=== PATIENT | female | born 1945 | race Caucasian/White ===

== ENCOUNTER 2017-11-03 12:33 | Outpatient (CLI) | payer MEDICARE, BC | END 2017-11-03 12:34 | disposition home or self-care (01) | LOC: BICMAMMO 12:33 | PROVIDERS: ATTEND Internal Medicine | DX: Z12.31 Encounter for screening mammogram for malignant neoplasm of breast (principal); R92.1 Mammographic calcification found on diagnostic imaging of breast | CPT/HCPCS: 77063; 77067 ==

== ENCOUNTER 2018-05-23 14:24 | Outpatient (CLI) | payer MEDICARE, BC ==
--- NOTE | 2018-05-23 17:41 | MRI ---
RIGHT SHOULDER MRI WITHOUT IV CONTRAST: 05/23/18 HISTORY: 72-year-old female with history of right rotator cuff tear, M75.101. No known injury. Right shoulder pain since March, getting worse. Prominent AC joint arthrosis with some subchondral cystic changes. fairly large amount of fluid withi n the subacromial, subdeltoid bursa. Full thickness minimally retracted supraspinatus tendon tear wit h some minimal associated delamination. There is some mild muscle volume loss of the supraspinatus mu scle. The remaining rotator cuff muscles appear within normal limits. The visualized labrum is somewh at blunted, evidence for some degenerative fraying. Subscapularis tendon and biceps tendons appear in tact. Posterior greater tuberosity subchondral cystic changes with a low grade partial thickness unde rsurface tear of the infraspinatus tendon. IMPRESSION: Full thickness minimally retracted tear of the supraspinatus tendon with considerable fluid in the [place] bacromial subdeltoid bursa. Low to mid grade partial thickness undersurface tear of the infraspinatus tendon at the insertion. Mild muscle volume loss of the supraspinatus muscle. Mild delamination asso ciated with the supraspinatus and infraspinatus tendons. Exam is considerably limited technically because of prominent motion artifact on numerous sequences. POS: [facility]
== END 2018-05-23 14:25 | disposition home or self-care (01) ==
LOC: SCSMRI 14:24
PROVIDERS: ATTEND Orthopaedic Surgery
DX: M75.101 Unspecified rotator cuff tear or rupture of right shoulder, not specified as traumatic (principal); S46.911A Strain of unspecified muscle, fascia and tendon at shoulder and upper arm level, right arm, initial encounter

== ENCOUNTER 2018-06-23 08:53 | Outpatient (CLI) | payer MEDICARE, BC ==
--- NOTE | 2018-06-23 12:16 | CT ---
CT ABDOMEN AND PELVIS: 06/23/2018 HISTORY: Lower abdominal pain for four days. History of diverticulosis. History of bladder sleeve procedure. COMPARISON: None. TECHNIQUE: Serial axial CT imaging is obtained at 5 mm intervals, from the lung bases through the pubic symphysi s, with IV and oral contrast. Coronal reformatted imaging obtained. FINDINGS: The imaged lung bases demonstrate linear density on the left, suggesting scar and/or volume loss. No free intraperitoneal air is noted. The patient is status post cholecystectomy. No discrete focal liver lesion is identified. The spleen, pancreas, and adrenal glands appear grossl y unremarkable. There is a cyst in the upper pole of the right kidney, measuring approximately 1.4 cm. There is prominent scoliotic curvature of the thoracolumbar spine with significant lumbar spine levos coliosis. There is a focal area of wall thickening and pericolonic fat stranding associated with the sigmoid co christel, best seen on axial image 58 and coronal image 58, suspicious for a focal area of colitis. There is no extraluminal gas or fluid. No evidence for abscess. The appendix is visualized and is within normal limits. There are nonspecific varices noted in the gastrohepatic ligament and splenic hilum. These could be associated with hepatocellular disease. Clinical correlation is required. No ascites is noted. There is scattered atherosclerotic calcification of the abdominal aorta and its branches. No lymphadenopathy is noted in the abdomen or pelvis. Review of the osseous structures demonstrates multilevel degenerative disk disease within the imaged spine, most significantly involving the mid lumbar spine, with right lateral osteophyte formation and disk space narrowing. There is no worrisome lytic or blastic bone lesion. IMPRESSION: 1. Focal are of colonic wall thickening and pericolonic fat stranding involving the sigmoid colon, e vidence of nonspecific colitis, likely on the basis of diverticulitis. Direct visualization, via colo noscopy, is advised, following the acute symptoms, to exclude an underlying colonic mass lesion. 2. Nonspecific upper abdominal varices. CODE T POS: [facility]
[2018-06-23] MEDS ORDERED: Iopamidol 370 76% 100 ML VIAL ONE (16:15)
== END 2018-06-23 08:54 | disposition home or self-care (01) ==
LOC: CT 08:53
PROVIDERS: ATTEND Physician Assistant Medical
DX: R10.30 Lower abdominal pain, unspecified (principal); K63.89 Other specified diseases of intestine
CPT/HCPCS: 74177

== ENCOUNTER 2018-07-20 05:28 | Outpatient (CLI) | payer MEDICARE, BC ==
[2018-07-20 12:09] LABS: #Eosinphils 0.2 thou/uL (0.0-0.7); #Monocytes 0.5 thou/uL (0.11-0.59); #Neutrophils 3.2 thou/uL (1.40-6.50); %Basophils 0.6 % (0.0-1.0); %Eosinophils 3.8 % (0.0-10.0); %Lymphocytes 20.6 % (21.0-51.0); %Monocytes 10.4 % (0.0-10.0); %Neutrophils 64.5 % (42.0-75.0); Hemoglobin 13.6 g/dL (12.0-16.0); Platelet Count 203 thou/uL (130-400); RBC Distribution Width 12.2 % (11.5-14.5); White Blood Cell (WBC) Count 4.9 thou/uL (4.8-10.8)
[2018-07-20 12:17] LABS: Anion Gap 12 mmol/L (10-20); BUN (Urea Nitrogen) 18 mg/dL (9.8-20.1); Calc. Creatinine Clearance 0 mL/min (70-130); Calcium 10.3 mg/dL (7.8-10.44); Carbon Dioxide 31 mmol/L (23-31); Chloride 104 mmol/L (98-107); Estimated GFR-MDRD 80; Glucose 104 mg/dL (83-110); Potassium 4.4 mmol/L (3.5-5.1); Sodium 143 mmol/L (136-145)
== END 2018-07-20 05:29 | disposition home or self-care (01) ==
LOC: LABBT 05:28
PROVIDERS: ATTEND Orthopaedic Surgery
DX: Z01.818 Encounter for other preprocedural examination (principal); M75.101 Unspecified rotator cuff tear or rupture of right shoulder, not specified as traumatic
CPT/HCPCS: 80048; 85025; 93005; 93010

== ENCOUNTER 2018-07-21 05:55 | Day surgery (SDC) | payer MEDICARE, BC ==
[2018-07-20 10:30] VITALS: BMI 29.4
[2018-07-21] MEDS ORDERED: Lidocaine 1% (PF) 30 ML VIAL ONE (06:30)
[2018-07-21] MEDS ORDERED: Midazolam HCl 2 mg/2 ml Vial ONE (06:30)
[2018-07-21] MEDS ORDERED: Fentanyl 100 MCG/2 ML VIAL ONE (06:30)
[2018-07-21] MEDS ORDERED: CEFAZOLIN 2 GM/50 ML BAG ONE (06:36)
[2018-07-21] MEDS ORDERED: Bupivacaine/Epinephrine 0.25% 30 ML VIAL ONE (06:38)
[2018-07-21] MEDS ORDERED: Promethazine HCl 25 MG/ML VIAL IM PRN (06:56)
[2018-07-21] MEDS ORDERED: Ondansetron PF 4 MG/2 ML Vial IVP PRN (06:56)
[2018-07-21] MEDS ORDERED: Fentanyl 100 MCG/2 ML VIAL SLOW IVP PRN (06:56)
[2018-07-21] MEDS ORDERED: traMADol HCl 50 MG TAB PO PRN ×2 (06:56)
[2018-07-21] MEDS ORDERED: Ropivacaine 0.2% 550 ML 550 ML NERVE BLCK SCH (06:56)
[2018-07-21] MEDS ORDERED: Zolpidem Tartrate 5 MG TAB PO PRN (06:56)
[2018-07-21] MEDS ORDERED: HYDROcodone/Acetaminophen 7.5/325 mg Tablet PO PRN ×2 (06:58)
--- NOTE | 2018-07-21 12:15 | OP ---
DATE OF PROCEDURE: 07/21/2018 PREOPERATIVE DIAGNOSES: Right shoulder impingement and rotator cuff tear and biceps instability. POSTOPERATIVE DIAGNOSES: Right shoulder impingement and rotator cuff tear and biceps instability. PROCEDURES PERFORMED: 1. Right shoulder arthroscopy with subacromial decompression. 2. Arthroscopic rotator cuff repair. 3. Arthroscopic biceps tenotomy. COOK RAILROAD: None. ESTIMATED BLOOD LOSS: Minimal. COMPLICATIONS: None. ANESTHESIA: She did have a general anesthetic. She also had a preoperative block. IMPLANTS: We used one Arthrex 5.5 SwiveLock for a SpeedFix repair. DISPOSITION: She did go to recovery in stable condition. INDICATIONS: Gayathri is a 73-year-old female, who comes in complaining of right shoulder pain, weakness, and instability and inability to do daily activities. At this time, she opted to have surgery in the arm. DESCRIPTION OF PROCEDURE: After all appropriate consent forms were explained and signed, she was taken back to the operating room, and at this time, she was given general anesthetic. Once the level of the anesthesia was appropriate, she was rolled into the left lateral decubitus position with all bony prominences well-padded. An axillary roll was placed underneath the left axilla and a beanbag was inflated to hold her in this position. The arm was taken through full range of motion and then suspended with 10 pounds in standard fashion. The right shoulder and upper extremity were then prepped and draped in standard surgical fashion. Bony anatomical landmarks were drawn out and the subacromial space was infiltrated with Marcaine with epinephrine. A posterior portal was established. The scope was placed into the shoulder joint. Anterior working portal was then made using a needle localization technique. Diagnostic arthroscopy commenced in the glenohumeral joint. The subscap was intact. The labrum overall was in good condition except for the superior labrum. The beginning portion of supraspinatus was found to be torn with a full-thickness tear and the biceps tendon was found to be in stable superiorly. The biceps tendon was found to be large and had an hourglass appearance and a significant amount of synovitic changes in the proximal portion of the bicipital groove. At this time, a biceps tenotomy was performed using the SERFAS energy. We then debrided the rotator cuff from the undersurface. We then finished by looking around the rest of the shoulder as the axillary pouch had no loose bodies. The posterior and inferior labrum were in good condition. There was a little bit of cartilage wear inferiorly, nothing significant, and at this time, the scope was removed and replaced into the subacromial space. Lateral working portal was made. Bursa was removed from off the underlying cuff. Full-thickness cuff tear was noted. A small decompression was performed using the service energy as well as a shaver and once that was done, we prepared our small cuff tear for repair using the shaver. At this time, it was felt that this was a small tear and SpeedFix could be performed. However, one [id number] suture had to be placed in the posterior aspect of this. Therefore, a Scorpion was used through the passport portal laterally and we passed one SutureTape suture as a [id number] repair. Once this was done, we used a 4.75 SwiveLock to remove the FiberTape out of this, passed it through the cuff using the Scorpion and went to place a 4.75 SwiveLock into the humeral bone. Once this was punched, we put this in, but it did not gain sufficient purchase. Therefore, this was removed and the 5.5 was used in the exact same manner. This gained much better purchase. The suture was removed from the middle of this. They were cut and this was the end of our rotator cuff repair. The arm was taken through full range of motion and found to be stable. The tear had been repaired and at this time, the scope was removed. Shoulder was drained and each portal was closed with a simple nylon stitch. Bulky sterile dressing was applied and the patient was then awakened and taken to the recovery room in stable condition. All counts were correct at the end of the case and she did receive preoperative IV antibiotics. Job ID: [id number]
[2018-07-21] MEDS ORDERED: PROPOFOL 200 MG/20 ML VIAL ONE (20:30)
[2018-07-21] MEDS ORDERED: Glycopyrrolate 0.2 MG/ML 5 ML SYRINGE ONE (20:30)
[2018-07-21] MEDS ORDERED: Ropivacaine 0.2% HCl/PF (40 MG/20 ML VIAL) ONE (20:30)
[2018-07-21] MEDS ORDERED: Ondansetron PF 4 MG/2 ML Vial ONE (20:30)
[2018-07-21] MEDS ORDERED: Ropivacaine 0.5% HCl/PF (150 MG/30 ML VIAL) ONE (20:30)
[2018-07-21] MEDS ORDERED: Lidocaine 1% PF 5 ML VIAL ONE (20:30)
[2018-07-21] MEDS ORDERED: PHENYLEPHRINE-NS 100 MCG/ML 10 ML SYRINGE ONE (20:30)
== END 2018-07-21 11:45 | disposition home or self-care (01) ==
LOC: SDC 05:55
PROVIDERS: ATTEND Orthopaedic Surgery
PROC: 0LQ14ZZ Repair Right Shoulder Tendon, Percutaneous Endoscopic Approach (ICD-10-PCS; principal; 2018-07-21)
PROC: 0RNJ4ZZ Release Right Shoulder Joint, Percutaneous Endoscopic Approach (ICD-10-PCS; 2018-07-21)
DX: M75.121 Complete rotator cuff tear or rupture of right shoulder, not specified as traumatic (principal); M25.811 Other specified joint disorders, right shoulder; M25.311 Other instability, right shoulder; E11.9 Type 2 diabetes mellitus without complications; M85.80 Other specified disorders of bone density and structure, unspecified site; E78.5 Hyperlipidemia, unspecified; M19.011 Primary osteoarthritis, right shoulder; Z88.8 Allergy status to other drugs, medicaments and biological substances; Z91.041 Radiographic dye allergy status; Z79.84 Long term (current) use of oral hypoglycemic drugs; Z79.899 Other long term (current) drug therapy
CPT/HCPCS: 93005; 93010; A4306; C1713; G8984-GP-CK; G8985-GP-CK; G8986-GP-CK; J2001; J2250; J2405; J2704; J2795; J3010

== ENCOUNTER 2018-07-22 21:38 | Inpatient (IN) | payer MEDICARE, BC ==
[~2018-07-22 21:38] MED LIST: ISOVUE-370 76%-LOCM 1 ML ONE
[2018-07-22 22:18] LABS: #Lymphocytes 1.4 thou/uL (1.20-3.40); #Monocytes 1.2 thou/uL (0.11-0.59); #Neutrophils 9.4 thou/uL (1.40-6.50); %Basophils 0.3 % (0.0-1.0); %Eosinophils 0.1 % (0.0-10.0); %Lymphocytes 11.5 % (21.0-51.0); %Monocytes 10.1 % (0.0-10.0); Hemoglobin 12.9 g/dL (12.0-16.0); Mean Corpuscular HGB CONC 34.1 g/dL (32.0-36.0); Mean Corpuscular Hemoglobin 33.7 pg (27.0-31.0); Mean Corpuscular Volume 98.6 fL (78.0-98.0); Mean Platelet Volume 5.5 fL (7.4-10.4); Platelet Count 217 thou/uL (130-400); RBC Distribution Width 12.3 % (11.5-14.5); Red Blood Cell (RBC) Count 3.83 mill/uL (4.20-5.40); White Blood Cell (WBC) Count 12.1 thou/uL (4.8-10.8)
--- NOTE | 2018-07-22 22:35 | RAD ---
ONE VIEW CHEST: 07/22/18 COMPARISON: 04/02/17 HISTORY: Pain. FINDINGS: Stable scoliosis of the spine. Persistent cardiomegaly. The pulmonary vessels are prominent. Patchy i nterstitial opacities throughout the lung parenchyma with more focal infiltrates in the lung bases. G iven diminished lung volumes, component of atelectasis should be considered. Infiltrate cannot be ent irely excluded. No pneumothorax. IMPRESSION: Lung parenchymal changes as described above. Findings may be due to atelectasis. Nevertheless, bibasi lar infiltrate cannot be excluded. POS: [facility]
[2018-07-22 22:38] LABS: ALT (SGPT) 15 U/L (8-55); AST (SGOT) 21 U/L (5-34); Albumin 4.3 g/dL (3.4-4.8); Alkaline Phosphatase 81 U/L (40-150); Anion Gap 13 mmol/L (10-20); BUN (Urea Nitrogen) 13 mg/dL (9.8-20.1); Bilirubin, Total 1.7 mg/dL (0.2-1.2); Calc. Creatinine Clearance 0 mL/min (70-130); Carbon Dioxide 28 mmol/L (23-31); Chloride 98 mmol/L (98-107); Estimated GFR-MDRD 74; Globulin 3.3 g/dL (2.4-3.5); Glucose 184 mg/dL (83-110); Potassium 3.9 mmol/L (3.5-5.1); Protein, Total 7.6 g/dL (6.0-8.3); Sodium 135 mmol/L (136-145)
[2018-07-22] MEDS ORDERED: methylPREDNISolone Sod Succ/PF 125 MG/2 ML VIAL ONE (23:14)
[2018-07-22] MEDS ORDERED: Famotidine/PF 20 mg/2ml Vial ONE (23:14)
[2018-07-22] MEDS ORDERED: Water For Inject, Bacteriostat 30 ML ONE (23:14)
[2018-07-22] MEDS ORDERED: diphenhydrAMINE 50 MG/ML VIAL ONE (23:14)
[2018-07-22] MEDS ORDERED: Piperacillin/Tazobactam 3.375 GM VIAL ONE (23:48)
[2018-07-23] MEDS ORDERED: Enoxaparin Sodium 80 MG/0.8 ML SYRINGE ONE (00:10)
[2018-07-23 00:11] LABS: CKMB 2.6 ng/mL (0-6.6)
--- NOTE | 2018-07-23 00:17 | CT ---
CT ANGIOGRAM OF THE CHEST 07/22/18 HISTORY: Weakness, status post right rotator cuff repair yesterday. Worsening shortness of breath. Cough. COMPARISON: None. TECHNIQUE: CT angiogram of the chest is performed in the axial plane. Three dimensional reformatted images are s ubmitted for interpretation. FINDINGS: Small foci if air note din the inferior right neck is presumed to be postoperative. Patchy opacities in the lingula and right upper lobe may represent areas of atelectasis. There is mor e focal consolidation in the middle lobe and right lower lobe. Correlate for multifocal atelectasis v ersus pneumonia. Trace amount of right sided pleural fluid. Trachea and central bronchi are patent. N o pneumothorax. No mediastinal mass, lymphadenopathy or hematoma. Heart is enlarged. No significant pericardial fluid . The thoracic aorta and upper abdominal aorta have an overall normal appearance. There is mild ectas ia. No dissection. No aneurysm. The visualized upper solid organs are grossly unremarkable. Adequate contrast opacification of the pulmonary arterial system to the level of the segmental arteri es. No evidence of filling defects to suggest thromboembolism. Mild rightward curvature of the thoracic spine. No lytic or blastic lesions. IMPRESSION: 1. No evidence of pulmonary artery embolism to the level of the segmental arteries. 2. Consolidation in the middle and right lower lobe. There is elevation of the right hemidiaphra gm, favoring atelectasis. Nevertheless, superimposed pneumonia cannot be excluded. Correlate clinical ly. 3. Cardiomegaly. POS: [facility]
[2018-07-23] MEDS ORDERED: Aspirin Chewable 81 MG TAB ONE (00:58)
[2018-07-23 01:55] LABS: Critical Call Chem Troponin I RESULT DECREASING; Troponin I 0.619 ng/mL (< 0.028)
[2018-07-23] MEDS ORDERED: Senokot S 8.6-50 MG TAB PO PRN (04:39)
[2018-07-23] MEDS ORDERED: Ondansetron ODT 4 MG TAB PO PRN (04:39)
[2018-07-23] MEDS ORDERED: Calcium Carbonate 500 MG ChewTAB PO PRN (04:39)
[2018-07-23] MEDS ORDERED: Zolpidem Tartrate 5 MG TAB PO PRN (04:39)
[2018-07-23] MEDS ORDERED: Ondansetron PF 4 MG/2 ML Vial IVP PRN (04:39)
[2018-07-23] MEDS ORDERED: Acetaminophen 650 MG Suppository PR PRN (04:39)
[2018-07-23] MEDS ORDERED: Dextrose 50% Abboject 50 ML SYRINGE SLOW IVP PRN (04:42)
[2018-07-23] MEDS ORDERED: Dextrose 5% in Water 1,000 ML IV PRN (04:42)
[2018-07-23] MEDS: HumaLOG 300 UNITS/3 ML VIAL SC PRN ×2 (05:17→13:50)
[2018-07-23 06:19] LABS: Critical Call Chem Troponin I RESULT DECREASING; Troponin I 0.363 ng/mL (< 0.028)
[2018-07-23 07:30] LABS: #Basophils 0.1 thou/uL (0.0-0.2); #Lymphocytes 0.7 thou/uL (1.20-3.40); #Monocytes 0.5 thou/uL (0.11-0.59); #Neutrophils 8.1 thou/uL (1.40-6.50); %Basophils 0.6 % (0.0-1.0); %Eosinophils 0.3 % (0.0-10.0); %Lymphocytes 7.2 % (21.0-51.0); %Monocytes 4.9 % (0.0-10.0); %Neutrophils 86.9 % (42.0-75.0); Hemoglobin 12.4 g/dL (12.0-16.0); Mean Corpuscular HGB CONC 32.6 g/dL (32.0-36.0); Mean Corpuscular Hemoglobin 32.5 pg (27.0-31.0); Mean Corpuscular Volume 99.7 fL (78.0-98.0); Platelet Count 172 thou/uL (130-400); RBC Distribution Width 12.1 % (11.5-14.5); Red Blood Cell (RBC) Count 3.83 mill/uL (4.20-5.40); White Blood Cell (WBC) Count 9.3 thou/uL (4.8-10.8)
[2018-07-23 07:32] LABS: Anion Gap 14 mmol/L (10-20); BUN (Urea Nitrogen) 12 mg/dL (9.8-20.1); Calc. Creatinine Clearance 83 mL/min (70-130); Carbon Dioxide 24 mmol/L (23-31); Chloride 102 mmol/L (98-107); Estimated GFR-MDRD 83; Glucose 213 mg/dL (83-110); Potassium 4.2 mmol/L (3.5-5.1); Sodium 136 mmol/L (136-145)
[2018-07-23] MEDS ORDERED: diphenhydrAMINE 25 MG CAP PO PRN (07:38)
[2018-07-23] MEDS ORDERED: Melatonin 3 MG TAB PO PRN (08:35)
[2018-07-23] MEDS ORDERED: Vit A,C & E/Lutein/Minerals Tablet PO SCH (09:00)
[2018-07-23] MEDS ORDERED: Non-Formulary Item 1 EACH (Lactobacillus Acidophilus [Probiotic] 1 CAPSULE) PO SCH (09:00)
[2018-07-23] MEDS ORDERED: Aspirin 325 mg Enteric Coated Tablet PO SCH (09:00)
[2018-07-23] MEDS ORDERED: Vancomycin HCl 1 GM in Premix Bag 1 BAG IVPB SCH (09:00)
[2018-07-23] MEDS ORDERED: Non-Formulary Item 1 EACH (Lansoprazole [Lansoprazole] 30 MG) PO SCH (09:00)
[2018-07-23] MEDS: Enoxaparin Sodium 40 MG/0.4 ML SYRINGE SC SCH (09:16)
[2018-07-23] MEDS: Ubidecarenone 50 MG CAP PO SCH ×2 (09:17→20:40)
[2018-07-23] MEDS: Calcium Carbonate + Vit D 1 TAB PO SCH ×2 (09:18→20:44)
[2018-07-23] MEDS: Gabapentin 300 MG CAP PO SCH ×2 (09:18→20:46)
[2018-07-23] MEDS: Lactinex Tablet PO SCH (09:18)
[2018-07-23] MEDS: Famotidine 20 MG TAB PO SCH ×2 (09:19→21:00)
[2018-07-23] MEDS: Multivitamin W/ Minerals 1 TAB PO SCH ×2 (09:20→20:47)
[2018-07-23] MEDS: Magnesium Oxide 400 MG TAB PO SCH (09:20)
[2018-07-23] MEDS: Famotidine/PF 20 mg/2ml Vial SLOW IVP SCH ×2 (09:25→20:48)
--- NOTE | 2018-07-23 09:31 | HP ---
HISTORY OF PRESENT ILLNESS: The patient is a 73-year-old female, who just had her right shoulder surgery done by Dr. Zambrano couple of days ago and she got sick after then. She started having some shortness of breath and feeling generalized weakness with some cough. She presented to the emergency room for further evaluation. She was found to have pneumonia and she is admitted for the treatment of healthcare-associated pneumonia. She was given vancomycin, levofloxacin, and Zosyn in the emergency room along with methylprednisolone. She had her right rotator cuff surgery as I stated above. She has a pump with ropivacaine for pain management, but she has not been used it yet. PAST MEDICAL HISTORY: 1. Diabetes mellitus. 2. Spinal stenosis. 3. Scoliosis. 4. Sleep apnea. 5. History of asthma in the past, but not current. PAST SURGICAL HISTORY: 1. Ectopic . 2. Miscarriage. 3. Oral surgery. 4. Cholecystectomy. 5. Tonsillectomy. 6. Bladder sling. 7. Left SLK surgery. 8. Right rotator cuff surgery just recently. CURRENT MEDICATIONS: 1. Lansoprazole 30 mg twice a day. 2. Balsalazide 750 two tablets twice a day. 3. Gabapentin 300 mg three capsules twice a day. 4. Atorvastatin 40 mg at bedtime. 5. Kombiglyze XR 5 mg/1000 mg one a day. 6. Nateglinide 60 mg twice a day. 7. B12 vitamin lozenge 5000 mcg one a day. 8. Calcium 500 with vitamin D twice a day. 9. Coenzyme Q10, 100 mg twice a day. 10. Magnesium 400 mg once a day. 11. Marlin 10/325 mg every 6 hours p.r.n. 12. Keflex 500 mg four times a day. 13. Olmesartan 20 mg once a day. 14. Ropivacaine elastomeric pump strength 0.2%. ALLERGIES: ERYTHROMYCIN BASE, IODINATED CONTRAST ORAL AND IV DYE. SOCIAL HISTORY: She does not have any history of cigarette smoking. She does not drink much, just socially. She does not use any illicit drugs. FAMILY HISTORY: Her parents were at the age of 92, both of them when they passed. Father had some kind of infection, but she does not know exactly what it was, and mother had intestinal rupture and she passed from that. Surrogate decision maker is her , Tiffanie Cash. PRIMARY CARE PHYSICIAN: Dr. Pimentel. CODE STATUS: Full. REVIEW OF SYSTEMS: CONSTITUTIONAL: Positive for generalized weakness. Negative for fever or chills. EYES: Negative for eye pain or eye discharge. ENT: Negative for nasal congestion or epistaxis. CARDIOVASCULAR: Negative for chest pain or palpitations. RESPIRATORY: Positive for shortness of breath and cough. GI: Negative for nausea or vomiting. : Negative for hematuria. Positive for some dysuria. MUSCULOSKELETAL: Positive for back pain. SKIN: Negative for erythema or rash. NEUROLOGIC: Negative for any focal weakness. Denies any mental status changes. ENDOCRINE: Negative for polydipsia or polyuria. PSYCHIATRIC: Negative for suicidal or homicidal ideations. PHYSICAL EXAMINATION: VITAL SIGNS: Blood pressure is 131/67, pulse is 91, temperature is 98.2, respirations 21, and O2 saturation is 92% on 3 L by nasal cannula. HEENT: Head is atraumatic and normocephalic. Eyes, PERRLA. Sclerae are nonicteric. Oral mucosa is somewhat dry. NECK: Supple. She has a small line in her right side of the neck for pain medications pump. She has right shoulder dressing. LUNGS: Present with some crackles and rales at the right base. No wheezing though. HEART: S1 and S2 normal. No S3. No S4. No any murmur. ABDOMEN: Soft and nontender. Bowel sounds are present. No organomegaly. No guarding. EXTREMITIES: No clubbing, cyanosis, or edema. NEUROLOGIC: She is alert and oriented x4. There is no any motor or sensory deficits present. Cranial nerves are intact. LABORATORY DATA: Labs showed white count of 9.3, hemoglobin of 12.4, hematocrit 38.2, platelet count is 172,000, neutrophils 86.9. The first white count from yesterday was 12.1. D-dimer is 0.82. Sodium 135, today is 136. The rest of electrolytes are within normal limits. Creatinine 0.69, glucose ranging from 184 to 213, calcium 9.0. Troponin is elevated at 0.701, 0.619, and 0.363. BNP was 309.3. Lipase 17. The rest of comp is within normal limits. DIAGNOSTIC STUDIES: EKG showed sinus tachycardia with 101 ventricular beats per minute, PA interval 142 milliseconds and QT/QTC 340/440 milliseconds. IMAGING STUDIES: 1. Chest x-ray showed cardiomegaly and some changes in both lower lungs, that is unclear etiology. 2. CT angiogram was done, which showed again cardiomegaly, and middle and right lower lobe infiltrates. No evidence of pulmonary embolism. IMPRESSION: 1. Right middle and lower lobe pneumonia that is healthcare-associated pneumonia, since the patient had rotator cuff surgery and after that she developed shortness of breath and hypoxia. 2. Respiratory failure with hypoxemia secondary to #1. 3. Non ST-segment elevation myocardial infarction. 4. History of asthma. 5. Severe sleep apnea, on CPAP at night. 6. Diabetes mellitus type 2. PLAN: Admission is full. Condition is guarded. IV Hep-Lock. Diabetic diet. Cardiology consultation with Dr. Be and Pulmonary consultation with Dr. Loco, since the patient lost her wafer mounter, , who moved to [facility], and she wants to switch to one of the wafer mounter from this hospital. We will start her on DuoNeb every 4 hours. We will put her on vancomycin and cefepime to have full broad coverage pathogens. She will continue on O2. She will have SCDs for DVT prophylaxis and Lovenox for DVT prophylaxis. We will reconcile her home medications. She had blood cultures x2. She is not able to make any sputum at this point, so we are not going to obtain a sputum specimen. Air Transportation Provider will make decision whether she will continue on IV steroids since she had one dose last night in the emergency room, but because of her recent right shoulder surgery, I will leave this up to him whether she needs steroid for her hypoxemia. Job ID: [id number]
[2018-07-23] MEDS: Cefepime 1 GM in Sodium Chloride 0.9% 100 ML IVPB SCH ×2 (10:52→20:36)
--- NOTE | 2018-07-23 12:09 | CON ---
DATE OF CONSULTATION: REASON FOR CONSULTATION: Elevated troponin. HISTORY OF PRESENT ILLNESS: Ms. Calzada is a very pleasant 73-year-old woman, who recently presented with shortness of breath. She recently had right shoulder surgery. She went home. She developed increased shortness of breath and fever. She was seen and evaluated in the emergency room and was diagnosed with atelectasis and questionable pneumonia. She had a right middle and lower lobe consolidation. No previous history of a chest pain or pressure noted. She is seen and evaluated by Dr. Huang. PAST MEDICAL HISTORY: Diabetes mellitus, hyperlipidemia, hypertension, previous palpitations, mitral regurgitation, obesity, hyperlipidemia, spinal stenosis, and sleep apnea. HOME MEDICATIONS: Include; 1. Diovan. 2. Lipitor. 3. Lansoprazole. 4. Melatonin. 5. Gabapentin. 6. Tizanidine. 7. Multivitamin. 8. CoQ10. 9. Benadryl. 10. Duloxetine. 11. Vitamin C. 12. Vitamin D. 13. Flonase. 14. Calcium. 15. Ocuvite. 16. Turmeric. PREVIOUS SURGICAL HISTORY: Includes a cataract surgery, cholecystectomy, polyp removal, colonoscopy, tonsillectomy, BTL, and wisdom teeth removal. ALLERGIES: ERYTHROMYCIN. REVIEW OF SYSTEMS: Ten-point review of systems is reviewed and as above, otherwise negative. PHYSICAL EXAMINATION: GENERAL: Patient is a pleasant, who is in no acute distress. The patient appears their stated age. VITAL SIGNS: Blood pressure 140/67, pulse 96, and temperature 97.7. NEUROLOGIC: The patient is alert and oriented x3 with no focal neurologic deficits. HEENT: Sclerae without icterus. Mouth has moist mucous membranes with normal pallor. NECK: No JVD. Carotid upstroke brisk. No bruits bilaterally. LUNGS: Clear to auscultation with unlabored respirations. BACK: No scoliosis or kyphosis. CARDIAC: Regular rate and rhythm with normal S1 and S2. No S3 or S4 noted. No significant rubs, murmurs, thrills, or gallops noted throughout the precordium. PMI is not displaced. There is no parasternal heave. ABDOMEN: Soft, nontender, nondistended. No peritoneal signs present. No hepatosplenomegaly. No abnormal striae. EXTREMITIES: 2+ femoral and 2+ dorsalis pedis pulses. No cyanosis, clubbing, or edema. SKIN: No gross abnormalities. LABORATORY DATA: Pertinent labs, creatinine 0.6. Peak troponin 0.6. Hemoglobin is 12.4. IMAGING DATA: EKG shows normal sinus rhythm, nonspecific ST-T wave changes. IMPRESSION: 1. Shortness of breath. 2. Recent surgery. 3. Elevated troponin. RECOMMENDATIONS: Ms. Garay shortness of breath is likely related to atelectasis versus pneumonia. She does state she has difficulty with taking a deep breath after her surgery. Incentive spirometry has been recommended. Her elevated troponin is likely not related to an acute coronary syndrome. No EKG changes are present. At this point, I would recommend conservative therapy. We will continue aspirin. We will add low-dose beta-peggy therapy and continue atorvastatin. May need disposition with stress test as an inpatient versus outpatient prior to discharge. Given her difficulty with breathing currently, we will need to wait several days. Job ID: [id number]
[2018-07-23] MEDS: Nateglinide 120 MG TAB PO SCH ×3 (19:13→19:16)
[2018-07-23] MEDS: Cyanocobalamin (Vitamin B-12) 1,000 MCG TAB PO SCH (20:41)
[2018-07-23] MEDS: Vit A,C & E/Lutein/Minerals Tablet PO SCH (20:41)
[2018-07-23] MEDS: Atorvastatin Calcium 40 MG TAB PO SCH (20:44)
--- NOTE | 2018-07-23 22:16 | CON ---
DATE OF CONSULTATION: 07/23/2018 SERVICE: Pulmonary Medicine. REASON FOR CONSULT: Respiratory failure. HISTORY OF PRESENT ILLNESS: The patient is a 73-year-old white female with past medical history significant for recent shoulder surgery. She was in her usual state of health going into the surgery. She was having some chest discomforts that were on and off. Ultimately, she went for with surgery either way. Two days later, she had increasing shortness of breath that caused her to come back to the emergency department. She currently denies any fevers or chills. She is having some low-grade temperature. She indicates having a cough that was bringing up a little bit of clear phlegm. She has been sleeping in a semi-recumbent position because it is easier to breathe in this position. She denies having any paroxysmal nocturnal dyspnea. She was having severe orthopnea. She has not been wheezing. In the emergency department, she had a chest x-ray that was concerning for pneumonia. That being said, the CT confirmed that there was no significant infiltrate present. If anything, she had a little bit of volume overload associated with some atelectasis. PAST MEDICAL HISTORY: 1. Type 2 diabetes mellitus. 2. History of asthma. 3. Obstructive sleep apnea. 4. Scoliosis. 5. Spinal stenosis. 6. Gastroesophageal reflux disease. 7. Dyslipidemia. 8. Hypertension. 9. Chronic pain syndrome. PAST SURGICAL HISTORY: 1. Ectopic surgery. 2. Oral surgery. 3. Cholecystectomy. 4. Tonsillectomy. 5. Bladder suspension surgery. 6. Left knee surgery. 7. Right rotator cuff surgery, postop day #3. ALLERGIES: ERYTHROMYCIN, IODINE. MEDICATIONS: List of her inpatient medications was reviewed. Multiple updates were made at this time. SOCIAL HISTORY: Negative for tobacco, alcohol, or illicit drug use. She has no exposure to chemicals, dust, asbestos, or tuberculosis. FAMILY HISTORY: Noncontributory. REVIEW OF SYSTEMS: General, head, ears, eyes, nose, throat, cardiovascular, respiratory, GI, , musculoskeletal, neurologic, and skin are negative except as mentioned is the HPI. PHYSICAL EXAMINATION: VITAL SIGNS: Afebrile, pulse 98, blood pressure 127/60, respirations 20, and saturation 98% on 3 L nasal cannula. GENERAL: The patient is awake and alert, in no apparent distress. LUNGS: Extensive crackles are present in the anterior and posterior regions. It is more extensive in the bibasilar region. There is decreased air entry in the right base. HEART: Normal rate and regular. ABDOMEN: Soft, nontender, and nondistended. Bowel sounds are positive. MUSCULOSKELETAL: No cyanosis or clubbing. There is no pitting in the bilateral lower extremities. NEUROLOGIC: Grossly nonfocal. LABORATORY DATA: WBC 9.3, hemoglobin 12.4, and platelets 172,000. D-dimer 0.82. Basic metabolic profile is unremarkable. Calcium 9.0, troponin is downtrending to 0.363. BNP 309. Lipase 17, lactate 1.1. Liver function studies are also completely unremarkable. Chest x-ray demonstrates cardiomegaly. There is possible infiltrate in the left base. There is also atelectasis in the right base with an elevated right-sided hemidiaphragm. IMAGING STUDIES: CT of the chest demonstrates no evidence of PE. There is interstitial fullness, and subtle ground-glass opacification changes consistent with a touch of volume overload. She has some atelectasis in the bibasilar region. There is a possible infiltrate in the posterior segment of the right upper lobe , and also the superior segment of the right lower lobe. There is bilateral pleural effusions, which are quite small. Fluid is prominent throughout the fissures. ASSESSMENT: 1. Acute hypoxic respiratory failure. 2. Acute on chronic diastolic heart failure. 3. Non-ST elevation myocardial infarction. 4. Atelectasis of the bilateral lung jesus. 5. Community-acquired pneumonia, possible. 6. Elevated right hemidiaphragm. 7. Obstructive sleep apnea. DISCUSSION AND PLAN: The patient should use her CPAP while she is here. We will diurese the patient until she returns down to euvolemia. I do believe she will easily tolerate 2 to 3 doses of Lasix. The first two will be provided tomorrow morning so that we do not interrupt her night. IV antibiotics will be completely discontinued. We will put her on p.o. Augmentin for possible pneumonia. This can be limited to a 5-day course. Pulmonary Critical Care will continue to follow along for the time being, but from my perspective, once she feels stable for discharge from the hospital, we can dismiss her. I will have her return to clinic to follow up with me in the outpatient setting. 70 minutes have been devoted to this patient in various activities. I personally reviewed all imaging studies and laboratory data noted within this document. For fifty percent of this time, I was interacting with the patient at the bedside or coordinating care with the care team. For the remainder of the time I was immediately available to the patient in the hospital unit. Job ID: [id number] MTDD
[2018-07-24 05:59] LABS: Anion Gap 12 mmol/L (10-20); BUN (Urea Nitrogen) 14 mg/dL (9.8-20.1); Calc. Creatinine Clearance 84 mL/min (70-130); Calcium 8.6 mg/dL (7.8-10.44); Carbon Dioxide 28 mmol/L (23-31); Chloride 103 mmol/L (98-107); Estimated GFR-MDRD 86; Glucose 175 mg/dL (83-110); Magnesium 2.4 mg/dL (1.6-2.6); Potassium 3.8 mmol/L (3.5-5.1); Sodium 139 mmol/L (136-145)
[2018-07-24] MEDS: Furosemide 20 MG/2 ML VIAL SLOW IVP SCH (06:03)
[2018-07-24] MEDS: ZINC PO SCH (07:46)
[2018-07-24] MEDS: FLAXSEED OIL 1300 MG PO SCH (07:46)
[2018-07-24] MEDS ORDERED: HYDROcodone/Acetaminophen 5/325 mg Tablet PO PRN (07:53)
[2018-07-24] MEDS: Nateglinide 120 MG TAB PO SCH ×2 (08:43→16:41)
[2018-07-24] MEDS: Ubidecarenone 50 MG CAP PO SCH ×2 (08:45→20:29)
[2018-07-24] MEDS: Enoxaparin Sodium 40 MG/0.4 ML SYRINGE SC SCH (08:45)
[2018-07-24] MEDS: Amoxicillin/Potassium Clav 875 MG TAB PO SCH ×2 (08:45→20:31)
[2018-07-24] MEDS: Lactinex Tablet PO SCH (08:45)
[2018-07-24] MEDS: Gabapentin 300 MG CAP PO SCH ×2 (08:46→20:30)
[2018-07-24] MEDS: Famotidine/PF 20 mg/2ml Vial SLOW IVP SCH ×2 (08:46→20:32)
[2018-07-24] MEDS: Calcium Carbonate + Vit D 1 TAB PO SCH ×2 (08:46→20:32)
[2018-07-24] MEDS: Magnesium Oxide 400 MG TAB PO SCH (08:46)
[2018-07-24] MEDS: Multivitamin W/ Minerals 1 TAB PO SCH ×2 (08:46→20:29)
[2018-07-24] MEDS: Famotidine 20 MG TAB PO SCH ×2 (08:46→20:31)
[2018-07-24] MEDS: Acetaminophen 325 MG TAB PO PRN ×2 (08:46→16:41)
[2018-07-24] MEDS: HumaLOG 300 UNITS/3 ML VIAL SC PRN ×2 (12:01→17:19)
--- NOTE | 2018-07-24 13:49 | PRG ---
DATE OF SERVICE: SUBJECTIVE: The patient appears to be doing well. She says she has improved greatly over the last 48 hours. OBJECTIVE: VITAL SIGNS: She is 97.9 with a T-max of 99.1, pulse 90, respirations 16, O2 saturation 96% on 3 L. HEENT: Unremarkable. NECK: No JVD. LUNGS: She has inspiratory crackles at the bases. CARDIAC: S1 and S2 regular. ABDOMEN: Soft. EXTREMITIES: No edema. LABORATORY DATA: Sodium 139, potassium 3.8, chloride 103, CO2 of 28, BUN 14, creatinine 0.7, glucose 175. ASSESSMENT: Pneumonia, which could be related to recent surgical procedure and potential aspiration with anesthesia. Principal involvement is in the right lower lobe. RECOMMENDATIONS: 1. Increase activity as tolerated. 2. Continue antibiotics. 3. Hopefully, able to discharge in the next 48 hours. Job ID: [id number]
[2018-07-24] MEDS ORDERED: Furosemide 20 MG/2 ML VIAL SLOW IVP SCH (14:00)
--- NOTE | 2018-07-24 15:03 | PRG ---
DATE OF SERVICE: 07/24/2018 SUBJECTIVE: The patient improved significantly since yesterday since we started her on prednisone. I discussed the case with Dr. Cowan, who okayed the use of prednisone for short periods of time. OBJECTIVE: VITAL SIGNS: Blood pressure is 128/83, temperature 97.9, O2 saturation is 96% on 3 L by nasal cannula, respiratory rate is 16, and pulse is 92. HEENT: Head is atraumatic and normocephalic. Eyes are PERRLA. Sclerae are nonicteric. Conjunctivae palish. Oral mucosa is moist. EXTREMITIES: She has a right upper extremity in the sling and the right shoulder is wrapped with dressing. LUNGS: Present with some crackles at the right base and few wheezes at the right base. HEART: S1 and S2 normal. No S3. No S4. ABDOMEN: Soft and nontender. Bowel sounds are present. No organomegaly. EXTREMITIES: No clubbing, cyanosis, or edema. NEUROLOGIC: She is alert and oriented x4. There are no motor or sensory deficits. Cranial nerves are intact. LABORATORY DATA: Labs showed glucose is ranging from 158 to 238. Normal chemistry today. IMPRESSION: 1. Right lower lobe and right middle lobe pneumonia. The patient was seen by parts salesman and she is switched to oral antibiotic. He does not think this is healthcare-associated pneumonia and she is treated as community-acquired pneumonia. Continue O2. Continue DuoNeb. 2. Respiratory failure with hypoxemia secondary to #1. 3. Bhf-[id number] elevation myocardial infarction. 4. History of asthma. 5. Severe sleep apnea, on CPAP at night. 6. Diabetes mellitus, type 2. PLAN: Plan is to continue current regimen with oral antibiotics. She was switched to Augmentin 875 mg twice a day. She was seen by Dr. Be for Cardiology evaluation. He feels that this is most likely related to her lung condition. He does not think this is acute coronary syndrome since there are no EKG changes at present. He recommends continue aspirin and low-dose beta peggy therapy and continue atorvastatin and later, he recommends to do the stress test when her condition is significantly improved to the point that she can do the stress test, nothing now. Job ID: [id number]
--- NOTE | 2018-07-24 15:06 | PQF ---
CLINICAL DOCUMENTATION IMPROVEMENT CLARIFICATION FORM: ICD-10 Updated PLEASE DO AN ADDENDUM TO THE PROGRESS NOTE WITH ANY DOCUMENTATION UPDATES OR ADDITIONS AND CARRY THROUGH TO DC SUMMARY. THANK YOU. DATE: 07/24/18 ATTN: DR. TRIVEDI Please exercise your independent, professional judgment in responding to the clarification form. Clinical indicators are provided on the bottom of this form for your review Please check appropriate box(s): [ ] NSTEMI [ ] ID Type II [ x ] DEMAND ISCHEMIA [ ] Other diagnosis [ ] Unable to determine In addition, please specify: Present on Admission (POA): [ ] Yes [ ] No [ ] Unable to determine CLINICAL INDICATORS - SIGNS / SYMPTOMS / LABS H&P: "NSTEMI" CARDIOLOGY NOTE 07/23: "ELEVATED TROPONIN" "HER ELEVATED TROPONIN IS LIKELY NOT RELATED TO AN ACUTE CORONARY SYNDROME. NO EKG CHANGES ARE PRESENT." TROPONINS 0.701 / 0.619 / 0.363 RISKS: RECENT SURGERY H/O DIABETES H/O HYPERTENSION PNEUMONIA TREATMENT: TELEMETRY MONITORING SERIAL CARDIAC ENZYMES CARDIOLOGY CONSULT LOVENOX (ER-PRESENT) ASPIRIN (ER) SAP Cosmetic Counselor [employer] Winform Viewer(This form is maintained as a part of the permanent medical record) 2014 [employer]. All Rights Reserved [email or web address] Office: [phone] [id number]
--- NOTE | 2018-07-24 15:28 | PQF ---
CLINICAL DOCUMENTATION IMPROVEMENT CLARIFICATION FORM: ICD-10 Updated PLEASE DO AN ADDENDUM TO THE PROGRESS NOTE WITH ANY DOCUMENTATION UPDATES OR ADDITIONS AND CARRY THROUGH TO DC SUMMARY. THANK YOU. DATE: 07/24/18 ATTN: DR. TRIVEDI Please exercise your independent, professional judgment in responding to the clarification form. Clinical indicators are provided on the bottom of this form for your review Please check appropriate box(s): [ ] Aspiration Pneumonia [ ] Aspiration Bronchitis [ ] Empirically treating Gram Negative Pneumonia [ ] Empirically treating Anaerobic Pneumonia [ ] Pneumonia secondary to (specify organism / underlying disease) [ ] Simple Pneumonia (community acquired - nosocomial) [ ] Bronchopneumonia [ ] Pneumonia of unknown etiology [ ] Other diagnosis [ ] Unable to determine In addition, please specify: Present on Admission (POA): [ ] Yes [ ] No [ ] Unable to determine For continuity of documentation, please document condition throughout progress notes and discharge summary. Thank You. CLINICAL INDICATORS - SIGNS / SYMPTOMS / LABS H&P: "ADMITTED FOR TREATMENT OF HEALTHCARE-ASSOCIATED PNEUMONIA" CONSULTATION NOTE (SPIKE) 07/23: "SHE HAS SOME ATELECTASIS IN THE BIBASILAR REGION. THERE IS A POSSIBLE INFILTRATE IN THE POSTERIOR SEGMENT OF THE RIGHT UPPER LOBE, AND ALSO THE SUPERIOR SEGMENT IF THE RIGHT LOWER LOBE. THERE IS BILATERAL PLEURAL EFFUSIONS, WHICH ARE QUITE SMALL." PROGRESS NOTE 07/24: "PNEUMONIA, WHICH COULD BE RELATED TO RECENT SURGICAL PROCEDURES AND POTENTIAL ASPIRATION WITH ANESTHESIA. PRINCIPAL INVOLVEMENT IS INS THE RIGHT LOWER LOBE." RISKS: ROTATOR CUFF SURGERY 2 DAYS AGO WITH ANESTHESIA TREATMENT: IV VANCOMYCIN (ER) IV LEVAQUIN (ER) IV ZOSYN (ER) AUGMENTIN (STARTED 07/24) BLOOD CULTURES TELEMETRY MONITORING PULMONARY CONSULT CHEST XRAY CT CHEST (This form is maintained as a part of the permanent medical record) 2014 [employer]. All Rights Reserved KUSH [email or web address] Office: [phone] SADIE
[2018-07-24] MEDS: Vit A,C & E/Lutein/Minerals Tablet PO SCH (20:29)
[2018-07-24] MEDS: Cyanocobalamin (Vitamin B-12) 1,000 MCG TAB PO SCH (20:30)
[2018-07-24] MEDS: Atorvastatin Calcium 40 MG TAB PO SCH (20:31)
--- NOTE | 2018-07-24 21:40 | PDOC.CTH ---
Cardiology Progress Note - Subjective She is doing well. She denies any chest pain, tightness ,pressure, SOB. - Objective Vital Signs Temp Pulse Resp BP BP Pulse Ox 07/24/18 19:40 99.6 F 100 18 117/56 L 97 07/24/18 19:27 91 18 95 07/24/18 16:00 98.6 F 99 18 136/63 97 07/24/18 13:03 92 16 96 07/24/18 12:00 97.9 F 99 18 128/83 95 Admit Weight 162 lb 11.2 oz Weight 160 lb 1.6 oz 07/23/18 07/24/18 07/25/18 06:59 06:59 06:59 Intake Total 2180 720 Output Total 1200 1700 Balance 980 -980 - Physical Examination General/Neuro: alert & oriented x3, NAD Neck: no JVD present Lungs: unlabored respirations Heart: RRR Abdomen: NT/ND Extremities: other: (no edema) - Telemetry Telemetry Rhythm: NSR, Afib - Labs Result Diagrams: 07/23/18 07:05 07/24/18 04:30 Troponin/CKMB CK-MB (CK-2) 2.6 ng/mL (0-6.6) 07/22/18 22:13 Troponin I 0.363 ng/mL (< 0.028) H* 07/23/18 04:19 - Assessment/Plan 1. SOB 2. Possible Pneumonia 3. NSTEMI, demand ischemia 4. Paroxysmal afib 5. CHADS-VASc score of 4 PLAN: - Will need ischemic evaluation once pneumonia resolved. - Will need full anticoagulation for her paroxysmal afib, will start Eliquis once safe from surgical perspective. - She did have episodes of chest pain prior to her surgery. May need LHC before discharge. Will discuss with Ortho. .- Will get Echo.
[2018-07-25] MEDS: Amiodarone 450 MG, Admixture Fee 1 EACH in Dextrose 5% in Water 250 ML IVPB SCH ×2 (00:52→09:36)
[2018-07-25 01:48] LABS: ALT (SGPT) 33 U/L (8-55); AST (SGOT) 39 U/L (5-34); Alkaline Phosphatase 113 U/L (40-150); Bilirubin, Direct 0.5 mg/dL (0.1-0.3); Bilirubin, Total 1.1 mg/dL (0.2-1.2); Magnesium 2.1 mg/dL (1.6-2.6); Potassium 3.4 mmol/L (3.5-5.1); Protein, Total 7.2 g/dL (6.0-8.3)
[2018-07-25] MEDS: Acetaminophen ER (8hr) 650 MG TAB PO PRN (02:06)
[2018-07-25] MEDS ORDERED: Potassium Chloride 20 MEQ TAB PO SCH (03:15)
[2018-07-25] MEDS: Furosemide 20 MG/2 ML VIAL SLOW IVP SCH (06:23)
[2018-07-25 06:44] LABS: Anion Gap 13 mmol/L (10-20); BUN (Urea Nitrogen) 16 mg/dL (9.8-20.1); Calc. Creatinine Clearance 80 mL/min (70-130); Calcium 9.2 mg/dL (7.8-10.44); Carbon Dioxide 29 mmol/L (23-31); Chloride 100 mmol/L (98-107); Estimated GFR-MDRD 80; Glucose 231 mg/dL (83-110); Magnesium 2.2 mg/dL (1.6-2.6); Potassium 3.7 mmol/L (3.5-5.1); Sodium 138 mmol/L (136-145)
[2018-07-25] MEDS: HumaLOG 300 UNITS/3 ML VIAL SC PRN ×3 (09:13→17:49)
[2018-07-25] MEDS: Ubidecarenone 50 MG CAP PO SCH ×2 (09:14→20:41)
[2018-07-25] MEDS: Enoxaparin Sodium 40 MG/0.4 ML SYRINGE SC SCH (09:14)
[2018-07-25] MEDS: Nateglinide 120 MG TAB PO SCH ×2 (09:15→17:49)
[2018-07-25] MEDS: Lactinex Tablet PO SCH (09:15)
[2018-07-25] MEDS: Multivitamin W/ Minerals 1 TAB PO SCH ×2 (09:16→20:43)
[2018-07-25] MEDS: Calcium Carbonate + Vit D 1 TAB PO SCH ×2 (09:16→20:43)
[2018-07-25] MEDS: Amoxicillin/Potassium Clav 875 MG TAB PO SCH ×2 (09:16→20:42)
[2018-07-25] MEDS: Magnesium Oxide 400 MG TAB PO SCH (09:16)
[2018-07-25] MEDS: Gabapentin 300 MG CAP PO SCH ×2 (09:16→20:43)
[2018-07-25] MEDS: Famotidine/PF 20 mg/2ml Vial SLOW IVP SCH ×2 (09:17→20:44)
[2018-07-25] MEDS: Famotidine 20 MG TAB PO SCH ×2 (09:33→20:43)
--- NOTE | 2018-07-25 13:32 | PRG ---
DATE OF SERVICE: 07/25/2018 SUBJECTIVE: This morning, still coughing, still short of breath. OBJECTIVE: VITAL SIGNS: Blood pressure is 120/63, temperature 98, pulse 90, respirations 18. CHEST: Decreased breath sounds. No wheezing. CARDIAC: Normal S1, S2. No gallops. ABDOMEN: No masses. IMPRESSION: Aspiration pneumonia and obesity. PLAN: Continue PT. She still on Cordarone, neb treatments, supportive care. We will follow. Job ID: [id number]
--- NOTE | 2018-07-25 14:49 | PRG ---
DATE OF SERVICE: 07/25/2018 SUBJECTIVE: The patient is seen and examined at bedside. She went to atrial fibrillation overnight without any symptoms. She was started on amiodarone drip. Now, she is back to normal sinus rhythm. OBJECTIVE: VITAL SIGNS: Blood pressure is 129/63, pulse is 90, temperature is 98.9, O2 saturation is 93% on 2 L by nasal cannula. Her respirations are 18. HEENT: Head is atraumatic and normocephalic. Eyes are PERRLA. Sclerae are nonicteric. Oral mucosa is moist. NECK: Supple. SHOULDER: Right shoulder post surgery. There are 3 entry points from the previous surgery with stitches. LUNGS: Bilateral rales with some more rales at the right base. HEART: S1 and S2, regular. No S3. No S4. ABDOMEN: Soft, obese, and nontender. EXTREMITIES: Her right upper extremity is in a sling. No clubbing, cyanosis, or edema. NEUROLOGICAL: She is alert and oriented x4. There is no any sensory or motor deficit present. Cranial nerves are intact. LABORATORY DATA: Glucose is ranging from 208 to 251. Normal chemistry. TSH was 1.11, magnesium 2.1, total bilirubin 1.1, direct bilirubin 0.5. AST 39, ALT 33, potassium 3.4 this morning and now is 3.7. Serum total protein 7.2, albumin 4.0. IMPRESSION: 1. Pneumonia of right lower lobe and middle lobe, on Augmentin. 2. Respiratory failure with hypoxemia, secondary to #1. 3. Non ST segment elevation myocardial infarction. 4. New onset atrial fibrillation. 5. History of asthma. 6. Severe sleep apnea, on continuous positive airway pressure at night. 7. Diabetes mellitus type 2, uncontrolled since we stopped part of her medical regimen. PLAN: Plan is to continue her amiodarone drip for now until Cardiology makes decision about the next step. Apparently, there is a plan to start her on anticoagulant since her CHADS-VASc score is above 2. We will continue her Augmentin 875 twice a day and 10 units of insulin glargine nightly since her glycemia is getting above 200s at this point, and we are not able to continue her full medical diabetic regimen she was using at home. Cardiology is planning to do stress testing on her prior to the discharge or left cardiac catheterization to further evaluate her cardiac condition. Job ID: [id number]
--- NOTE | 2018-07-25 17:26 | PDOC.CTH ---
Cardiology Progress Note - Subjective She is doing well. She went into afib earlier today. Has had about 3 or 4 episodes. HR up to the 150's. - Objective Vital Signs Temp Pulse Resp BP Pulse Ox 07/25/18 15:25 99.2 F 94 18 159/74 H 93 L 07/25/18 14:41 90 16 07/25/18 11:20 98.9 F 90 18 129/63 07/25/18 07:18 85 16 93 L 07/25/18 07:07 95 07/25/18 07:00 97.9 F 83 16 107/62 95 Admit Weight 162 lb 11.2 oz Weight 160 lb 1.6 oz 07/24/18 07/25/18 07/26/18 06:59 06:59 06:59 Intake Total 2180 1560 Output Total 1200 3300 Balance 980 -1740 - Physical Examination General/Neuro: alert & oriented x3, NAD Neck: no JVD present Lungs: CTA, unlabored respirations Heart: RRR Abdomen: NT/ND Extremities: other: (no edema.) - Telemetry Telemetry Rhythm: NSR, Afib rvr - Labs Result Diagrams: 07/23/18 07:05 07/25/18 06:00 Troponin/CKMB CK-MB (CK-2) 2.6 ng/mL (0-6.6) 07/22/18 22:13 Troponin I 0.363 ng/mL (< 0.028) H* 07/23/18 04:19 - Assessment/Plan 1. SOB 2. Possible Pneumonia 3. NSTEMI 4. Paroxysmal afib 5. CHADS-VASc score of 4 PLAN: - I had a long conversation with her about her chest pain. She states she was having chest pain before her surgery and she had worse episode after surgery with mid sternal tightness. She has not had this since. Her troponins did increase to a positive level suggestive of ischemia. I think she will benefit from risk stratification with a [facility]. We spoke at length about risk and benefits , risks included but not limited to , [place], [place], bleeding and need for blood transfusions, limb loss, organ loss, need for emergent bypass, vascular injury. She understands and verbalizes understanding of this and agrees to proceed. - Will need full anticoagulation for her paroxysmal afib, I spoke with Dr. Mcqueen about this and 4 days out of surgery it should be safe to start full anticoagulation. Will do Full dose Lovenox this evening.
[2018-07-25] MEDS ORDERED: Communication Order-Pharmacy FS SCH (17:30)
[2018-07-25] MEDS: Bisacodyl 5 MG TAB PO PRN (18:05)
[2018-07-25] MEDS: Cyanocobalamin (Vitamin B-12) 1,000 MCG TAB PO SCH (20:41)
[2018-07-25] MEDS: Atorvastatin Calcium 40 MG TAB PO SCH (20:43)
[2018-07-25] MEDS: Vit A,C & E/Lutein/Minerals Tablet PO SCH (20:43)
[2018-07-25] MEDS: Insulin Glargine 10 UNITS in Pre-Filled Syringe 1 EACH SC SCH (20:44)
[2018-07-25] MEDS: Acetaminophen 325 MG TAB PO PRN (20:54)
[2018-07-26] MEDS: Sodium Chloride 0.9% 1,000 ML IV SCH ×2 (00:38→13:00)
[2018-07-26] MEDS: Amiodarone 450 MG, Admixture Fee 1 EACH in Dextrose 5% in Water 250 ML IVPB SCH (01:11)
[2018-07-26] MEDS ORDERED: diphenhydrAMINE 50 MG CAP PO SCH (03:30)
[2018-07-26] MEDS: Furosemide 20 MG/2 ML VIAL SLOW IVP SCH (05:45)
[2018-07-26] MEDS: predniSONE 20 MG TAB PO SCH (05:45)
[2018-07-26] MEDS: Amoxicillin/Potassium Clav 875 MG TAB PO SCH ×2 (05:46→21:06)
[2018-07-26] MEDS: Aspirin Chewable 81 MG TAB PO SCH (05:46)
[2018-07-26] MEDS: Famotidine 20 MG TAB PO SCH ×2 (05:46→21:07)
[2018-07-26] MEDS: Gabapentin 300 MG CAP PO SCH ×2 (05:46→21:05)
[2018-07-26] MEDS ORDERED: Iopamidol 370 76% 100 ML VIAL ONE (09:17)
[2018-07-26] MEDS: Nateglinide 120 MG TAB PO SCH ×2 (11:21→17:01)
[2018-07-26] MEDS: Calcium Carbonate + Vit D 1 TAB PO SCH ×2 (11:21→21:07)
[2018-07-26] MEDS: Multivitamin W/ Minerals 1 TAB PO SCH ×2 (11:22→21:06)
[2018-07-26] MEDS: Famotidine/PF 20 mg/2ml Vial SLOW IVP SCH ×2 (11:22→21:08)
[2018-07-26] MEDS: Ubidecarenone 50 MG CAP PO SCH ×2 (11:22→21:06)
[2018-07-26] MEDS: Magnesium Oxide 400 MG TAB PO SCH (11:22)
[2018-07-26] MEDS: Lactinex Tablet PO SCH (11:22)
--- NOTE | 2018-07-26 12:12 | PRG ---
DATE OF SERVICE: 07/26/2018 SUBJECTIVE: The patient is seen and examined at the bedside. She is getting ready for cardiac catheterization to be done this morning. This afternoon, her respirations improved to the point that she is not on any oxygen at this point. OBJECTIVE: VITAL SIGNS: Blood pressure is 141/63, pulse is 91, temperature is 99.5, maximal temperature is 100.3, respirations 17, O2 saturation is 98% on room air. HEENT: Head is otherwise normocephalic. Eyes, pupils respond to light properly. Sclerae are nonicteric. Conjunctivae are pinkish. Oral mucosa is moist. EXTREMITIES: Right upper extremity is in a sling. LUNGS: Few crackles at both bases. No wheezing. HEART: S1 and S2 are normal. No S3. No S4. ABDOMEN: Soft, nontender, nondistended. EXTREMITIES: No clubbing, cyanosis, or edema. NEUROLOGICAL: She is alert and oriented x4. There is no any sensory or motor deficits present. Cranial nerves are intact. LABORATORY DATA: Glycemia is ranging from 173 to 293. Magnesium 2.0. Echocardiogram showed LVEF of 55% to 60%, grade 1 diastolic dysfunction, mild mitral regurgitation, mild aortic regurgitation, mild tricuspid regurgitation, right ventricular systolic pressure was estimated at 37 mmHg, and mild pulmonic regurgitation. IMPRESSION: 1. Pneumonia of the right lower lobe and middle lobe, on Augmentin, improved, not requiring any O2. 2. Respiratory failure with hypoxemia secondary to #1. 3. Fva-GH-eaniyrn elevation myocardial infarction from cardiac cath today. 4. New-onset atrial fibrillation converted to sinus rhythm, still on amiodarone drip. 5. History of asthma. 6. Severe sleep apnea, on continuous positive airway pressure at night. 7. Diabetes mellitus type 2, uncontrolled since some medications were stopped and she is receiving steroids for her IV dye allergy prior to the cardiac catheterization. PLAN: Plan is to continue current regimen. She is going to have cardiac cath done by foundry molder. We will continue her Augmentin. Job ID: [id number]
[2018-07-26] MEDS ORDERED: diphenhydrAMINE 50 MG/ML VIAL ONE (14:08)
[2018-07-26] MEDS ORDERED: Hydrocortisone Sod Succ/PF 100 mg/2 ml Vial ONE (14:21)
[2018-07-26] MEDS ORDERED: Sodium Chloride 0.9% 200 ML IV SCH (15:20)
[2018-07-26] MEDS ORDERED: Nitroglycerin 0.4 MG TAB (25 Tab Bottle) SL PRN (15:20)
[2018-07-26] MEDS ORDERED: Acetaminophen/Codeine 30-300mg Tablet PO PRN ×2 (15:20)
[2018-07-26] MEDS ORDERED: traMADol HCl 50 MG TAB PO PRN (15:20)
--- NOTE | 2018-07-26 15:25 | PDOC.CTH ---
Cardiology Progress Note - Subjective No cardiac complaints. Maintaining NSR. no chest pain, occasional tightness - Objective Vital Signs Temp Pulse Resp BP BP Pulse Ox 07/26/18 11:46 89 16 95 07/26/18 11:05 99.5 F 91 17 141/63 H 98 07/26/18 08:53 100.1 F H 87 16 152/67 H 98 07/26/18 06:35 91 18 94 L 07/26/18 04:00 98.1 F 89 18 150/65 H 95 Admit Weight 162 lb 11.2 oz Weight 160 lb 9 oz 07/25/18 07/26/18 07/27/18 06:59 06:59 06:59 Intake Total 1560 1920 Output Total 3300 2300 Balance -1740 -380 - Physical Examination General/Neuro: alert & oriented x3 Lungs: CTA Heart: RRR Abdomen: NT/ND - Labs Result Diagrams: 07/23/18 07:05 07/25/18 06:00 Troponin/CKMB CK-MB (CK-2) 2.6 ng/mL (0-6.6) 07/22/18 22:13 Troponin I 0.363 ng/mL (< 0.028) H* 07/23/18 04:19 - Assessment/Plan 1. SOB 2. Possible Pneumonia 3. Possible NSTEMI. CIE's indeterminate and trended down. cath today. Pre- medicated for iodine allergy. 4. Paroxysmal afib. May be due to stress or CAD. 5. CHADS-VASc score of 4. Suggest OAC.
[2018-07-26] MEDS: HumaLOG 300 UNITS/3 ML VIAL SC PRN ×2 (16:59→21:27)
[2018-07-26] MEDS: Atorvastatin Calcium 40 MG TAB PO SCH (21:05)
[2018-07-26] MEDS: Cyanocobalamin (Vitamin B-12) 1,000 MCG TAB PO SCH (21:06)
[2018-07-26] MEDS: guaiFENesin ER 600 MG TAB PO SCH (21:06)
[2018-07-26] MEDS: Amiodarone 200 MG TAB PO SCH (21:06)
[2018-07-26] MEDS: Vit A,C & E/Lutein/Minerals Tablet PO SCH (21:07)
[2018-07-26] MEDS: Insulin Glargine 10 UNITS in Pre-Filled Syringe 1 EACH SC SCH (21:26)
[2018-07-26] MEDS: Apixaban 5 MG TAB PO SCH (21:26)
[2018-07-27] MEDS: Sodium Chloride 0.9% 1,000 ML IV SCH (00:58)
[2018-07-27] MEDS: Acetaminophen ER (8hr) 650 MG TAB PO PRN (01:10)
[2018-07-27 06:03] LABS: #Eosinphils 0.1 thou/uL (0.0-0.7); #Lymphocytes 1.7 thou/uL (1.20-3.40); #Monocytes 0.7 thou/uL (0.11-0.59); #Neutrophils 4.9 thou/uL (1.40-6.50); %Eosinophils 0.9 % (0.0-10.0); %Lymphocytes 22.9 % (21.0-51.0); %Monocytes 8.9 % (0.0-10.0); %Neutrophils 67.3 % (42.0-75.0); Hemoglobin 11.4 g/dL (12.0-16.0); Mean Corpuscular HGB CONC 33.4 g/dL (32.0-36.0); Mean Corpuscular Hemoglobin 33.1 pg (27.0-31.0); Mean Corpuscular Volume 99.3 fL (78.0-98.0); Platelet Count 243 thou/uL (130-400); RBC Distribution Width 12.3 % (11.5-14.5); Red Blood Cell (RBC) Count 3.44 mill/uL (4.20-5.40); White Blood Cell (WBC) Count 7.3 thou/uL (4.8-10.8)
[2018-07-27] MEDS: Furosemide 20 MG/2 ML VIAL SLOW IVP SCH (06:17)
[2018-07-27 06:24] LABS: Anion Gap 13 mmol/L (10-20); BUN (Urea Nitrogen) 14 mg/dL (9.8-20.1); Calc. Creatinine Clearance 81 mL/min (70-130); Calcium 9.2 mg/dL (7.8-10.44); Carbon Dioxide 28 mmol/L (23-31); Chloride 102 mmol/L (98-107); Estimated GFR-MDRD 82; Glucose 140 mg/dL (83-110); Magnesium 2.4 mg/dL (1.6-2.6); Potassium 3.3 mmol/L (3.5-5.1); Sodium 140 mmol/L (136-145)
[2018-07-27] MEDS: Nateglinide 120 MG TAB PO SCH (09:13)
[2018-07-27] MEDS: predniSONE 20 MG TAB PO SCH (09:14)
[2018-07-27] MEDS: Apixaban 5 MG TAB PO SCH (09:15)
[2018-07-27] MEDS: Amiodarone 200 MG TAB PO SCH (09:15)
[2018-07-27] MEDS: Amoxicillin/Potassium Clav 875 MG TAB PO SCH (09:15)
[2018-07-27] MEDS: Aspirin Chewable 81 MG TAB PO SCH (09:16)
[2018-07-27] MEDS: Calcium Carbonate + Vit D 1 TAB PO SCH (09:16)
[2018-07-27] MEDS: Famotidine 20 MG TAB PO SCH (09:16)
[2018-07-27] MEDS: Lactinex Tablet PO SCH (09:17)
[2018-07-27] MEDS: Gabapentin 300 MG CAP PO SCH (09:17)
[2018-07-27] MEDS: Magnesium Oxide 400 MG TAB PO SCH (09:17)
[2018-07-27] MEDS: Multivitamin W/ Minerals 1 TAB PO SCH (09:17)
[2018-07-27] MEDS: Famotidine/PF 20 mg/2ml Vial SLOW IVP SCH (09:17)
[2018-07-27] MEDS: guaiFENesin ER 600 MG TAB PO SCH (09:17)
[2018-07-27] MEDS: Ubidecarenone 50 MG CAP PO SCH (09:18)
[2018-07-27] MEDS: Bisacodyl 5 MG TAB PO PRN (09:26)
[2018-07-27 11:06] VITALS: BP 138/65; TEMP 98.4
[2018-07-27] MEDS: HumaLOG 300 UNITS/3 ML VIAL SC PRN (11:51)
--- NOTE | 2018-07-27 11:57 | PDOC.CTH ---
Cardiology Progress Note - Subjective The pt seen and examined. No overnight events. No cardiac complaints. She has been feeling fatigue more than 1 year. - Objective Vital Signs Temp Pulse Resp BP BP Pulse Ox 07/27/18 11:36 81 16 98 07/27/18 11:05 98.4 F 94 16 138/65 95 07/27/18 07:26 99.4 F 92 16 146/67 H 100 07/27/18 07:06 88 18 97 07/27/18 04:00 99.3 F 83 20 119/57 L 96 07/27/18 00:16 85 16 98 Admit Weight 162 lb 11.2 oz Weight 161 lb 4 oz 07/26/18 07/27/18 07/28/18 06:59 06:59 06:59 Intake Total 1920 2180 Output Total 2300 3025 Balance -380 -845 - Physical Examination General/Neuro: alert & oriented x3 Neck: no JVD present Lungs: CTA Heart: RRR Abdomen: soft Extremities: other: (No edema) - Telemetry Telemetry Rhythm: SR 90s - Labs Result Diagrams: 07/27/18 04:31 07/27/18 04:31 Troponin/CKMB CK-MB (CK-2) 2.6 ng/mL (0-6.6) 07/22/18 22:13 Troponin I 0.363 ng/mL (< 0.028) H* 07/23/18 04:19 - Assessment/Plan 1. SOB 2/2 possible PNA - stable; 2. Paroxysmal afib - Ramains in SR since 07/25/2018 with Amiodarone 200mg TID, which change to BID. On Eliquis 5mg BID for CHADS-VASc score of 4. 3. Indeterminate Trop - s/p LHC on 07/26/2018 with normal coronary arteries with EF 65%. The cath site is no hematoma, mass, or hemorrhage and soft to touch. 4. DM type 2 - managed by PCP 5. Sleep apnea - on Cpap MAR reviewed * Echo on 07/25/2018 showed EF 55-60%, gradie I diastolic dysfunction, mild MR, mild AR, mild TR, and mild IN, RVSP 37mmHg. * From cardiac standpoint, the pt is stable to d/c home. The pt will f/u with Dr Huang' office within 2 wks ( at that time, possible stop Amiodarone if HR remains in SR) Review of Systems - Review of Systems Constitutional: reports: see HPI EENTM: reports: no symptoms reported Respiratory: reports: no symptoms reported Cardiac (ROS): reports: no symptoms reported ABD/GI: reports: no symptoms reported : reports: no symptoms reported Musculoskeletal: reports: no symptoms reported
[2018-07-27 11:59] VITALS: BMI 29.5
[2018-07-27] MEDS: Potassium Chloride 20 MEQ TAB PO SCH ×2 (12:49→15:11)
--- NOTE | 2018-07-27 13:16 | PRG ---
DATE OF SERVICE: 07/27/2018 SERVICE: Pulmonary Medicine. INTERVAL HISTORY: The patient is breathing quite comfortably. No complaints of fevers, chills, nausea, or vomiting. There had been no overnight events. Otherwise, she is perfectly stable and has no complaints. OBJECTIVE: VITAL SIGNS: Afebrile. Pulse 94, blood pressure 138/65, respirations 16, and saturation 95% on room air. GENERAL: The patient is awake and alert, in no apparent distress. LUNGS: Decent air entry. No crackles are present. Minimal rhonchi present, but clear with cough. HEART: Normal rate regular. ABDOMEN: Soft, nontender, and nondistended. Bowel sounds are positive. MUSCULOSKELETAL: No cyanosis or clubbing. There is no pitting in the bilateral lower extremities. NEUROLOGIC: Grossly nonfocal. LABORATORY DATA: WBC 7.3, hemoglobin 11.4, and platelets 243,000. Basic metabolic profile is essentially unremarkable. Magnesium 2.4, potassium 3.3. Blood cultures x2 are unremarkable. IMAGING: Echocardiogram demonstrates normal ejection fraction. 1/3 diastolic dysfunction is noted. ASSESSMENT: 1. Acute hypoxic respiratory failure, resolved. 2. Acute on chronic diastolic heart failure. 3. Atelectasis of the bilateral lung jesus, resolved. 4. Community-acquired pneumonia, unlikely. 5. Elevated right-sided hemidiaphragm. 6. Obstructive sleep apnea, well controlled with auto BiPAP with minimum EPAP of 11. DISCUSSION AND PLAN: The patient is doing absolutely fantastic from respiratory standpoint and can be considered for transition out of the hospital today. She can complete a 5-day course of antibiotic. I think she only needs one more day. In the outpatient setting, if she is still inclined, she can follow up with me to talk about her sleep apnea. At this point, she has no further requirements for inpatient pulmonary critical care opinion, and I will sign off. Please call with additional questions or concerns. Job ID: [id number]
[2018-07-27] MEDS ORDERED: Amiodarone 200 MG TAB PO SCH (21:00)
--- NOTE | 2018-08-05 19:10 | EKG ---
Test Reason : Blood Pressure : / mmHG Vent. Rate : 101 BPM Atrial Rate : 101 BPM P-R Int : 142 ms QRS Dur : 076 ms QT Int : 340 ms P-R-T Axes : 050 025 022 degrees QTc Int : 440 ms Sinus tachycardia Otherwise normal ECG Confirmed by JOSEPH MCWILLIAMS ([id number]), assistant film editor JUAN SHARMA ([id number]) on 08/05/2018 7:10:08 PM Referred By: Confirmed By:JOSEPH MCWILLIAMS
--- NOTE | 2018-09-25 21:27 | DIS ---
DATE OF ADMISSION: 07/23/2018 DATE OF DISCHARGE: 07/27/2018 Please note, this patient was discharged by Dr. Bhupendra Gómez, who is no longer working at this facility. I did not personally contact this patient, but I am dictating this discharge summary. DISCHARGE DIAGNOSES: 1. Acute hypoxic respiratory failure. 2. Acute on chronic diastolic heart failure. 3. Atelectasis of bilateral lung jesus. 4. Community-acquired pneumonia. 5. Elevated right hemidiaphragm. 6. Obstructive sleep apnea. 7. Paroxysmal atrial fibrillation. 8. Non-ST segment myocardial infarction. 9. Diabetes mellitus. 10. Status post recent rotator cuff surgery. IMAGING REPORTS: Echocardiogram revealed an ejection fraction of 55% to 60% with grade 1 diastolic dysfunction. Chest x-ray at admission revealing parenchymal changes with patchy interstitial opacities throughout the lungs with more focal in the bases. CT angiogram of the chest revealed no evidence of pulmonary embolus, consolidation in the middle and right lower lobe. Elevation of the right hemidiaphragm and cardiomegaly. HOSPITAL COURSE: This patient is a 73-year-old female, who presented to the hospital via the emergency department and the patient had recently undergone rotator cuff surgery and subsequently started having some breathing difficulties, generalized weakness, and cough. She had the above findings on imaging studies with white count of 9.3, which is down from the day before, which was 12.1. Serial troponin of 0.7 with a subsequent of 0.69. BNP was 309. EKG showed sinus tachycardia at 101. The patient was subsequently admitted to the hospital with right middle lobe hospital-acquired or healthcare-associated pneumonia following rotator cuff surgery. She was felt to have had a non-STEMI. She was started on appropriate antibiotics with vancomycin, cefepime, and Levaquin after blood cultures were obtained. She was seen in consultation by Cardiology and by Pulmonology as the patient's symptoms improved from the pneumonia and her COPD exacerbation with antibiotics, nebulizer treatments, steroids, and noninvasive airway support. She was felt to be appropriate for heart cath given her reporting some chest pain prior to her rotator cuff surgery and the elevations of her troponins. The patient did undergo a heart cath when she was adequately stable and was premedicated for iodine allergy. The report revealed normal coronary arteries and subsequently, the patient was felt to be stable for discharge to home. On the day of discharge, her temperature was 98.4, pulse 81, respirations 16, and O2 sat was 98% on room air. DISPOSITION: The patient was discharged on a diabetic heart healthy diet with cardiopulmonary limitations on her activity. DISCHARGE MEDICATIONS: Include; 1. Amiodarone 200 mg b.i.d. 2. Augmentin 875 one p.o. b.i.d. 3. Eliquis 5 mg b.i.d. 4. Aspirin 81 mg daily. 5. Guaifenesin 1200 mg q.12 hours. 6. Prednisone 40 mg p.o. daily. 7. She was to resume Zinc 0.5 b.i.d. 8. Centrum Silver one p.o. daily. 9. Saxagliptin/metformin one p.o. daily. 10. Lansoprazole 30 mg b.i.d. 11. Gabapentin 600 mg at bedtime. 12. Gabapentin 300 mg q.a.m. 13. Colazal two p.o. b.i.d. 14. Atorvastatin 40 mg p.o. at bedtime. 15. Multivitamin/Ocuvite one p.o. daily. 16. Probiotic one p.o. daily. 17. Melatonin 5 mg at bedtime p.r.n. 18. Flaxseed oil. 19. Benadryl p.r.n. 20. Magnesium 400 mg daily. 21. CoQ10 of 200 mg b.i.d. 22. Nateglinide 60 mg b.i.d. 23. Calcium with vitamin D one p.o. b.i.d. 24. Fluticasone two sprays per nostril daily. 25. Olmesartan 20 mg daily. 26. B12 of 5000 mcg at bedtime. 27. Diclofenac topical p.r.n. 28. Acetaminophen p.r.n. 29. Keflex 500 mg q.i.d. 30. [place] 10/325 p.r.n. FOLLOWUP: The patient is to follow up with Dr. Tashi Pimentel, her PCP, and will also follow up with Dr. Loco in 3 to 4 weeks, Dr. Zambrano on August [address] Lee Huang on August 08. The patient may return to the emergency department prior to follow up as indicated. Job ID: [id number] [facility]
== END 2018-07-27 15:26 | disposition home or self-care (01) | DRG 193 ==
LOC: ERS 21:38 → 2NO 07-23 00:42
PROVIDERS: ADMIT Internal Medicine; ATTEND Internal Medicine
PROC: 4A023N7 Measurement of Cardiac Sampling and Pressure, Left Heart, Percutaneous Approach (ICD-10-PCS; principal; 2018-07-26)
PROC: B2111ZZ Fluoroscopy of Multiple Coronary Arteries using Low Osmolar Contrast (ICD-10-PCS; 2018-07-26)
PROC: B2151ZZ Fluoroscopy of Left Heart using Low Osmolar Contrast (ICD-10-PCS; 2018-07-26)
DX: J18.1 Lobar pneumonia, unspecified organism (principal); J96.01 Acute respiratory failure with hypoxia; I50.33 Acute on chronic diastolic (congestive) heart failure; I24.8 Other forms of acute ischemic heart disease; J98.11 Atelectasis; I48.0 Paroxysmal atrial fibrillation; J45.909 Unspecified asthma, uncomplicated; E11.9 Type 2 diabetes mellitus without complications; G47.33 Obstructive sleep apnea (adult) (pediatric); G89.4 Chronic pain syndrome; Z88.1 Allergy status to other antibiotic agents; Z91.041 Radiographic dye allergy status; Z79.899 Other long term (current) drug therapy
CPT/HCPCS: 36415; 36416; 71045; 71275; 75625; 80048; 80053; 80076; 82553; 83605; 83690; 83735; 83880; 84443; 84484; 85025; 85379; 87040; 93005; 93010; 93306; 93458; 94640; 96361; 96365; 96367; 96368; 96372; 96375; A4306; C1713; C1769; G8984-GP-CK; G8985-GP-CK; G8986-GP-CK; J0282; J0692; J1200; J1644; J1650; J1720; J1825; J1940; J1956; J2001; J2250; J2405; J2543; J2704; J2795; J2930; J3010; J3370; J7050; J7070; J7620; J8499; Q0163; Q9967; S0028

== ENCOUNTER 2018-10-11 09:43 | Outpatient (CLI) | payer MEDICARE, BC ==
--- NOTE | 2018-10-11 11:56 | CT ---
CT OF THE THORAX WITHOUT IV CONTRAST: Date: 10/11/18 INDICATION: Follow-up pulmonary infiltrate seen on a comparison examination dated 07/22/18. FINDINGS: The exam is compared to prior CTA thorax dated 07/22/18 from [facility]. FINDINGS: The air space consolidation has resolved within the right lower lobe. The lungs are clear. There are areas of subsegmental volume loss within the left lower lobe. No definite pleural effusion or pneumot horax is evident. There are calcified lymph nodes within the mediastinum and right hilar region. There are vascular charles cifications involving the coronary arteries and thoracic aorta. There is prominent thoracolumbar scoliosis. There is scattered degenerative and osteoarthritic change . IMPRESSION: 1. Resolution of previously seen right lower lobe pneumonia. 2. Mild subsegmental volume loss within the left lower lobe. 3. Findings of prior granulomatous disease. POS: [facility]
== END 2018-10-11 09:44 | disposition home or self-care (01) ==
LOC: BICCT 09:43
PROVIDERS: ATTEND Internal Medicine
DX: R91.8 Other nonspecific abnormal finding of lung field (principal); G47.33 Obstructive sleep apnea (adult) (pediatric); J98.4 Other disorders of lung
CPT/HCPCS: 71250

== ENCOUNTER 2018-11-21 12:54 | Outpatient (CLI) | payer MEDICARE, BC ==
--- NOTE | 2018-11-21 13:38 | ULT ---
THYROID ULTRASOUND: HISTORY: Follow-up thyroid lesion. COMPARISON: Comparison is made to previous exam from 04/09/2016. FINDINGS: Multiple longitudinal and transverse images of the thyroid gland are obtained using a MultiHertz line ar ray transducer. Real-time color flow images were obtained. The right thyroid lobe measures 5.9 x 2.4 x 2.0 cm and the left lobe measures 5.2 x 1.6 x 2.2 cm. Multiple subcentimeter bilateral thyroid lesions seen. These are present on the previous exam. The largest thyroid lesion is in the right mid pole measuring 1.2 x 1.1 x 0.8 cm. The lesion is spong iform in appearance. No definite calcifications seen. Findings suggest TIRADS score of 2 (TR 2). No additional imaging indicated. The lesion is stable. IMPRESSION: Stable thyroid lesion. Transcribed Date/Time: 11/21/2018 1:56 PM
== END 2018-11-21 12:55 | disposition home or self-care (01) ==
LOC: BICULT 12:54
PROVIDERS: ATTEND Internal Medicine
DX: E04.2 Nontoxic multinodular goiter (principal); E07.9 Disorder of thyroid, unspecified
CPT/HCPCS: 76536

== ENCOUNTER 2018-11-28 10:47 | Outpatient (CLI) | payer MEDICARE, BC ==
--- NOTE | 2018-11-28 11:41 | MMO ---
Bilateral MAMMO Bilat Screen [facility]. CLINICAL HISTORY: Patient is 73 years old and is seen for screening. The patient has no family history of breast cancer. The patient has no personal history of cancer. VIEWS: The views performed were: bilateral craniocaudal with tomosynthesis and bilateral mediolateral oblique with tomosynthesis. FILMS COMPARED: The present examination has been compared to prior imaging studies performed at [facility] on 11/03/2017, and at [facility] on 09/01/2015 and 09/03/2016. MAMMOGRAM FINDINGS: The breasts are heterogeneously dense, which could obscure a lesion on mammography. There are stable benign appearing calcifications seen in both breasts. There are no suspicious masses, suspicious calcifications, or new areas of architectural distortion. IMPRESSION: THERE IS NO MAMMOGRAPHIC EVIDENCE OF MALIGNANCY. A ROUTINE FOLLOW-UP MAMMOGRAM IN 1 YEAR IS RECOMMENDED. THE RESULTS OF THIS EXAM WERE SENT TO THE PATIENT. ACR BI-RADS Category 2 - Benign finding MAMMOGRAPHY NOTE: 1. A negative mammogram report should not delay a biopsy if a dominant of clinically suspicious mass is present. 2. Approximately 10% to 15% of breast cancers are not detected by mammography. 3. Adenosis and dense breasts may obscure an underlying neoplasm.
== END 2018-11-28 10:48 | disposition home or self-care (01) ==
LOC: BICMAMMO 10:47
PROVIDERS: ATTEND Obstetrics & Gynecology
DX: Z12.31 Encounter for screening mammogram for malignant neoplasm of breast (principal)
CPT/HCPCS: 77063; 77067

== ENCOUNTER 2019-08-03 08:49 | Outpatient (CLI) | payer MEDICARE, BC ==
--- NOTE | 2019-08-03 09:56 | RAD ---
EXAM: XR Barium Swallow Esophagus PROVIDED CLINICAL HISTORY: Dysphagia. Patient states difficulty in swallowing bread. Patient states bread get stuck in region of mid esophagus. 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 Pulmonary vasculature is within nor mal limits. Lungs are clear. There is prominent right convex scoliosis of the thoracic spine. Single contrast esophagram was performed in usual fashion. There is decreased primary esophageal ivon stalsis with minimal tertiary contractions noted. No focal narrowing is seen within the esophagus. No definite mucosal irregularity is appreciated. A 12.5 mm barium tablet was administered which trave rses the GE junction freely and without holdup. A tiny sliding-type hiatal hernia is present. No gastroesophageal reflux was noted during the exam. IMPRESSION: 1. Decreased primary esophageal peristalsis with minimal tertiary contractions. Findings could be rel ated to presbyesophagus. 2. Tiny sliding-type hiatal hernia. No gastroesophageal reflux is seen. 3. No focal narrowing is seen involving the esophagus. 4. Prominent right convex scoliosis thoracic spine.
== END 2019-08-03 08:50 | disposition home or self-care (01) ==
LOC: RAD 08:49
PROVIDERS: ATTEND Physician Assistant Medical
DX: R13.10 Dysphagia, unspecified (principal); R10.9 Unspecified abdominal pain; K44.9 Diaphragmatic hernia without obstruction or gangrene; M41.9 Scoliosis, unspecified; K22.8 Other specified diseases of esophagus
CPT/HCPCS: 74220

== ENCOUNTER 2019-10-10 10:49 | Outpatient (CLI) | payer MEDICARE, BC ==
--- NOTE | 2019-10-10 11:02 | RAD ---
EXAM: Chest 2 views: HISTORY: Dyspnea COMPARISON: None. FINDINGS: There is a normal-sized cardiomediastinal silhouette. There is no evidence of consolidation, mass, or pleural effusion. Degenerative changes are seen in the spine. IMPRESSION: No evidence of acute cardiopulmonary disease
== END 2019-10-10 10:50 | disposition home or self-care (01) ==
LOC: RAD 10:49
PROVIDERS: ATTEND Internal Medicine
DX: R06.00 Dyspnea, unspecified (principal)
CPT/HCPCS: 71046

== ENCOUNTER 2019-12-07 13:19 | Outpatient (CLI) | payer MEDICARE, BC ==
--- NOTE | 2019-12-07 14:00 | MMO ---
Bilateral MAMMO Bilat Screen [facility]. CLINICAL HISTORY: Patient is 74 years old and is seen for screening. The patient has no family history of breast cancer. The patient has no personal history of cancer. VIEWS: The views performed were: bilateral craniocaudal with tomosynthesis and bilateral mediolateral oblique with tomosynthesis. FILMS COMPARED: The present examination has been compared to prior imaging studies performed at [facility] on 11/03/2017 and 11/28/2018, and at [facility] on 09/01/2015 and 09/03/2016. This study has been interpreted with the assistance of computer-aided detection. MAMMOGRAM FINDINGS: The breasts are heterogeneously dense, which could obscure a lesion on mammography. There are stable benign appearing calcifications seen in both breasts. There are no suspicious masses, suspicious calcifications, or new areas of architectural distortion. IMPRESSION: THERE IS NO MAMMOGRAPHIC EVIDENCE OF MALIGNANCY. A ROUTINE FOLLOW-UP MAMMOGRAM IN 1 YEAR IS RECOMMENDED. THE RESULTS OF THIS EXAM WERE SENT TO THE PATIENT. ACR BI-RADS Category 2 - Benign finding MAMMOGRAPHY NOTE: 1. A negative mammogram report should not delay a biopsy if a dominant of clinically suspicious mass is present. 2. Approximately 10% to 15% of breast cancers are not detected by mammography. 3. Adenosis and dense breasts may obscure an underlying neoplasm. Reported by: MAU ROBERTO MD Electonically Signed: [id number]
== END 2019-12-07 13:20 | disposition home or self-care (01) ==
LOC: BICMAMMO 13:19
PROVIDERS: ATTEND Obstetrics & Gynecology
DX: Z12.31 Encounter for screening mammogram for malignant neoplasm of breast (principal)
CPT/HCPCS: 77063; 77067

== ENCOUNTER 2020-12-16 10:17 | Outpatient (CLI) | payer MEDICARE, BC | END 2020-12-16 10:18 | disposition home or self-care (01) | LOC: BICMAMMO 10:17 | PROVIDERS: ATTEND Family Medicine | DX: Z12.31 Encounter for screening mammogram for malignant neoplasm of breast (principal); Z13.820 Encounter for screening for osteoporosis; M81.0 Age-related osteoporosis without current pathological fracture; M85.88 Other specified disorders of bone density and structure, other site | CPT/HCPCS: 77063; 77067; 77080 ==

== ENCOUNTER 2021-10-23 14:23 | Outpatient (CLI) | payer MEDICARE, BC | END 2021-10-23 14:24 | disposition home or self-care (01) | LOC: BICULT 14:23 | PROVIDERS: ATTEND Internal Medicine | DX: E04.2 Nontoxic multinodular goiter (principal) | CPT/HCPCS: 76536 ==

== ENCOUNTER 2021-12-22 11:24 | Outpatient (CLI) | payer MEDICARE, BC | END 2021-12-22 11:25 | disposition home or self-care (01) | LOC: BICMAMMO 11:24 | PROVIDERS: ATTEND Family Medicine | DX: Z12.31 Encounter for screening mammogram for malignant neoplasm of breast (principal) | CPT/HCPCS: 77063; 77067 ==

== ENCOUNTER 2022-01-20 13:24 | Emergency (ER) | payer MEDICARE, BC ==
[2022-01-20] MEDS ORDERED: traMADol HCl 50 MG TAB ONE (16:18)
== END 2022-01-20 17:30 | disposition home or self-care (01) ==
LOC: ERS 13:24
DX: S86.112A Strain of other muscle(s) and tendon(s) of posterior muscle group at lower leg level, left leg, initial encounter (principal); M25.562 Pain in left knee; G89.29 Other chronic pain; M54.50 Low back pain, unspecified; I48.91 Unspecified atrial fibrillation; E11.9 Type 2 diabetes mellitus without complications; E78.2 Mixed hyperlipidemia; X58.XXXA Exposure to other specified factors, initial encounter; Z87.19 Personal history of other diseases of the digestive system; Z79.899 Other long term (current) drug therapy

== ENCOUNTER 2022-01-27 12:32 | Outpatient (CLI) | payer MEDICARE, BC | END 2022-01-27 12:33 | disposition home or self-care (01) | LOC: TBSIIMAG 12:32 | PROVIDERS: ATTEND Nurse Practitioner Family | DX: M48.062 Spinal stenosis, lumbar region with neurogenic claudication (principal); M47.816 Spondylosis without myelopathy or radiculopathy, lumbar region; M41.9 Scoliosis, unspecified | CPT/HCPCS: 72148 ==

== ENCOUNTER 2022-04-07 15:10 | Outpatient (CLI) | payer MEDICARE, BC | END 2022-04-07 15:11 | disposition home or self-care (01) | LOC: TBSIIMAG 15:10 | PROVIDERS: ATTEND Anesthesiology Pain Medicine | DX: M25.562 Pain in left knee (principal) ==

== ENCOUNTER 2022-10-28 08:27 | Emergency (ER) | payer MEDICARE, BC ==
[2022-10-28 09:24] LABS: #Eosinphils 0.1 thou/uL (0.0-0.7); #Monocytes 0.5 thou/uL (0.11-0.59); #Neutrophils 6.2 thou/uL (1.40-6.50); %Basophils 0.2 % (0.0-1.0); %Eosinophils 1.2 % (0.0-10.0); %Lymphocytes 12.7 % (21.0-51.0); %Monocytes 6.4 % (0.0-10.0); %Neutrophils 79.6 % (42.0-75.0); Hemoglobin 12.7 g/dL (12.0-16.0); Mean Corpuscular HGB CONC 32.8 g/dL (32.0-36.0); Mean Corpuscular Hemoglobin 33.6 pg (27.0-31.0); Platelet Count 179 10x3/uL (130-400); RBC Distribution Width 12.9 % (11.5-14.5); Red Blood Cell (RBC) Count 3.77 mill/uL (4.20-5.40); White Blood Cell (WBC) Count 7.8 10x3/uL (4.8-10.8)
[2022-10-28] MEDS ORDERED: Famotidine/PF 20 mg/2ml Vial ONE (10:19)
[2022-10-28] MEDS ORDERED: methylPREDNISolone Sod Succ 40 MG VIAL ONE (10:19)
[2022-10-28] MEDS ORDERED: diphenhydrAMINE 50 MG/ML VIAL ONE (10:19)
[2022-10-28] MEDS ORDERED: Morphine 4 MG/ML VIAL ONE (10:19)
[2022-10-28 11:17] LABS: Albumin 4.2 g/dL (3.4-4.8)
[2022-10-28 11:18] LABS: Chloride 98 mmol/L (98-107); Potassium 4.1 mmol/L (3.5-5.1); Sodium 135 mmol/L (136-145)
[2022-10-28 11:19] LABS: Calcium 9.5 mg/dL (7.8-10.44); Glucose 168 mg/dL (83-110)
[2022-10-28 11:20] LABS: Protein, Total 7.2 g/dL (5.8-8.1)
[2022-10-28 11:21] LABS: Anion Gap 12 mmol/L (10-20); Bilirubin, Total 0.6 mg/dL (0.2-1.2); Carbon Dioxide 29 mmol/L (23-31)
[2022-10-28 11:22] LABS: Alkaline Phosphatase 77 U/L (40-110)
[2022-10-28 11:23] LABS: Calc. Creatinine Clearance 0 mL/min (70-130); Estimated GFR 55
[2022-10-28 11:24] LABS: BUN (Urea Nitrogen) 21 mg/dL (9.8-20.1)
[2022-10-28 11:25] LABS: ALT (SGPT) 17 U/L (8-55); AST (SGOT) 29 U/L (5-34)
[2022-10-28 11:43] LABS: Bacteria/HPF 4+ HPF (None Seen); Bilirubin Negative (Negative); Blood, Urine 1+ (Negative); Clarity Clear (Clear); Glucose, Urine (Dipstick) Normal (Negative); Ketone, Urine Negative (Negative); Leukocyte 75 Leu/uL (Negative); Nitrite Negative (Negative); Protein, Urine (Dipstick) 30 mg/dL (Neg-Trace); RBC/HPF 0-3 HPF (0-3); Specific Gravity, Urine 1.015 (1.002-1.036); Squamous Epithelial 0-3 HPF (0-3); Urobilinogen Normal mg/dL (Less than 2); pH, Urine 7.5 (5.0-9.0)
== END 2022-10-28 19:11 ==
LOC: ERS 08:27
DX: S12.600A Unspecified displaced fracture of seventh cervical vertebra, initial encounter for closed fracture (principal); S22.020A Wedge compression fracture of second thoracic vertebra, initial encounter for closed fracture; S22.050A Wedge compression fracture of T5-T6 vertebra, initial encounter for closed fracture; N39.0 Urinary tract infection, site not specified; E11.9 Type 2 diabetes mellitus without complications; E78.00 Pure hypercholesterolemia, unspecified; W19.XXXA Unspecified fall, initial encounter; Z79.84 Long term (current) use of oral hypoglycemic drugs
CPT/HCPCS: 36415; 51701; 70450; 70498; 72040; 72125; 72128; 80053; 81003; 81015; 84443; 85025; 87086; 93005; 96374; 96375; J1200; J2270; J2920; S0028

== ENCOUNTER 2022-11-02 10:33 | Inpatient (IN) | payer MEDICARE, BC ==
[2022-11-02 11:13] LABS: #Basophils 0.1 thou/uL (0.0-0.2); #Eosinphils 0.1 thou/uL (0.0-0.7); #Neutrophils 11.5 thou/uL (1.40-6.50); %Basophils 0.4 % (0.0-1.0); %Eosinophils 0.7 % (0.0-10.0); %Lymphocytes 7.1 % (21.0-51.0); %Monocytes 7.2 % (0.0-10.0); %Neutrophils 84.6 % (42.0-75.0); Hemoglobin 14.3 g/dL (12.0-16.0); Mean Corpuscular HGB CONC 33.7 g/dL (32.0-36.0); Mean Corpuscular Hemoglobin 33.1 pg (27.0-31.0); Mean Corpuscular Volume 98.2 fl (78.0-98.0); Mean Platelet Volume 5.5 fL (7.4-10.4); Platelet Count 268 10x3/uL (130-400); RBC Distribution Width 12.5 % (11.5-14.5); Red Blood Cell (RBC) Count 4.32 mill/uL (4.20-5.40); White Blood Cell (WBC) Count 13.6 10x3/uL (4.8-10.8)
[2022-11-02 11:43] LABS: ALT (SGPT) 15 U/L (8-55); AST (SGOT) 19 U/L (5-34); Albumin 4.4 g/dL (3.4-4.8); Alkaline Phosphatase 85 U/L (40-110); Anion Gap 19 mmol/L (10-20); BUN (Urea Nitrogen) 24 mg/dL (9.8-20.1); Bilirubin, Total 1.1 mg/dL (0.2-1.2); Calc. Creatinine Clearance 0 mL/min (70-130); Calcium 9.7 mg/dL (7.8-10.44); Carbon Dioxide 21 mmol/L (23-31); Chloride 81 mmol/L (98-107); Estimated GFR 64; Globulin 3.4 g/dL (2.4-3.5); Glucose 135 mg/dL (83-110); Potassium 4.6 mmol/L (3.5-5.1); Protein, Total 7.8 g/dL (5.8-8.1)
[2022-11-02 11:50] LABS: Sodium 116 mmol/L (136-145)
[2022-11-02] MEDS ORDERED: STERILE WATER IV SCH ×2 (12:30→18:00)
[2022-11-02] MEDS ORDERED: SODIUM CHLORIDE IV SCH ×2 (12:30→18:00)
[2022-11-02] MEDS ORDERED: Calcium Carbonate 500 MG ChewTAB PO PRN (13:09)
[2022-11-02] MEDS ORDERED: Senokot S 8.6-50 MG TAB PO PRN (13:09)
[2022-11-02] MEDS ORDERED: Acetaminophen 325 MG TAB PO PRN (13:09)
[2022-11-02] MEDS ORDERED: Ondansetron PF 4 MG/2 ML Vial IVP PRN (13:09)
[2022-11-02] MEDS ORDERED: Ondansetron ODT 4 MG TAB PO PRN (13:09)
[2022-11-02] MEDS ORDERED: Dextrose 50% Abboject 50 ML SYRINGE SLOW IVP PRN (14:56)
[2022-11-02] MEDS ORDERED: Dextrose 5% in Water 1,000 ML IV PRN (14:56)
[2022-11-02] MEDS ORDERED: HumaLOG 300 UNITS/3 ML VIAL SC PRN ×2 (14:56)
[2022-11-02 16:31] VITALS: BMI 31.4
[2022-11-02 17:25] LABS: Anion Gap 13 mmol/L (10-20); BUN (Urea Nitrogen) 23 mg/dL (9.8-20.1); Calc. Creatinine Clearance 66 mL/min (70-130); Calcium 8.9 mg/dL (7.8-10.44); Carbon Dioxide 24 mmol/L (23-31); Chloride 84 mmol/L (98-107); Estimated GFR 72; Glucose 126 mg/dL (83-110); Potassium 4.6 mmol/L (3.5-5.1)
[2022-11-02 17:40] LABS: Sodium 116 mmol/L (136-145)
[2022-11-02] MEDS: Atorvastatin Calcium 40 MG TAB PO SCH (20:39)
[2022-11-02] MEDS: Apixaban 5 MG TAB PO SCH (20:39)
[2022-11-02] MEDS: Amiodarone 200 MG TAB PO SCH (20:39)
[2022-11-02 22:32] LABS: Anion Gap 16 mmol/L (10-20); BUN (Urea Nitrogen) 21 mg/dL (9.8-20.1); Calc. Creatinine Clearance 66 mL/min (70-130); Calcium 9.2 mg/dL (7.8-10.44); Carbon Dioxide 23 mmol/L (23-31); Chloride 85 mmol/L (98-107); Estimated GFR 71; Glucose 120 mg/dL (83-110); Potassium 4.7 mmol/L (3.5-5.1)
[2022-11-02 22:36] LABS: Sodium 119 mmol/L (136-145)
[2022-11-03] MEDS: SODIUM CHLORIDE IV SCH ×4 (02:26→20:41)
[2022-11-03] MEDS: STERILE WATER IV SCH ×4 (02:26→20:41)
[2022-11-03 05:56] LABS: #Eosinphils 0.1 thou/uL (0.0-0.7); #Monocytes 1.1 thou/uL (0.11-0.59); #Neutrophils 8.2 thou/uL (1.40-6.50); %Basophils 0.1 % (0.0-1.0); %Eosinophils 0.9 % (0.0-10.0); %Lymphocytes 9.3 % (21.0-51.0); %Monocytes 10.4 % (0.0-10.0); %Neutrophils 79.3 % (42.0-75.0); Hemoglobin 13.4 g/dL (12.0-16.0); Mean Corpuscular HGB CONC 33.6 g/dL (32.0-36.0); Mean Corpuscular Hemoglobin 33.2 pg (27.0-31.0); Mean Corpuscular Volume 98.6 fl (78.0-98.0); Mean Platelet Volume 5.4 fL (7.4-10.4); Platelet Count 239 10x3/uL (130-400); RBC Distribution Width 12.4 % (11.5-14.5); Red Blood Cell (RBC) Count 4.05 mill/uL (4.20-5.40); White Blood Cell (WBC) Count 10.4 10x3/uL (4.8-10.8)
[2022-11-03 06:21] LABS: Anion Gap 14 mmol/L (10-20); BUN (Urea Nitrogen) 19 mg/dL (9.8-20.1); Calc. Creatinine Clearance 73 mL/min (70-130); Calcium 8.7 mg/dL (7.8-10.44); Carbon Dioxide 23 mmol/L (23-31); Chloride 86 mmol/L (98-107); Estimated GFR 80; Glucose 135 mg/dL (83-110); Potassium 4.4 mmol/L (3.5-5.1)
[2022-11-03 06:27] LABS: Sodium 119 mmol/L (136-145)
[2022-11-03] MEDS: Amiodarone 200 MG TAB PO SCH ×2 (08:31→21:36)
[2022-11-03] MEDS: Apixaban 5 MG TAB PO SCH ×2 (08:31→21:36)
[2022-11-03] MEDS: Aspirin Chewable 81 MG TAB PO SCH (08:31)
[2022-11-03] MEDS ORDERED: traMADol HCl 50 MG TAB PO PRN (08:39)
[2022-11-03] MEDS: Lidocaine 4% Patch TD SCH (09:57)
[2022-11-03 13:13] LABS: ALT (SGPT) 15 U/L (8-55); AST (SGOT) 22 U/L (5-34); Albumin 3.8 g/dL (3.4-4.8); Alkaline Phosphatase 80 U/L (40-110); Anion Gap 14 mmol/L (10-20); BUN (Urea Nitrogen) 17 mg/dL (9.8-20.1); Bilirubin, Total 0.9 mg/dL (0.2-1.2); Calc. Creatinine Clearance 69 mL/min (70-130); Calcium 8.5 mg/dL (7.8-10.44); Carbon Dioxide 21 mmol/L (23-31); Chloride 89 mmol/L (98-107); Estimated GFR 75; Globulin 3.2 g/dL (2.4-3.5); Glucose 166 mg/dL (83-110); Potassium 4.6 mmol/L (3.5-5.1)
[2022-11-03 13:28] LABS: Sodium 119 mmol/L (136-145)
[2022-11-03 17:59] LABS: Anion Gap 17 mmol/L (10-20); BUN (Urea Nitrogen) 15 mg/dL (9.8-20.1); Calc. Creatinine Clearance 71 mL/min (70-130); Calcium 8.8 mg/dL (7.8-10.44); Carbon Dioxide 21 mmol/L (23-31); Chloride 92 mmol/L (98-107); Estimated GFR 78; Glucose 162 mg/dL (83-110); Potassium 4.8 mmol/L (3.5-5.1); Sodium 125 mmol/L (136-145)
[2022-11-03] MEDS ORDERED: Sodium Chloride 256 MEQ in Sterile Water 936 ML IV SCH ×2 (19:15→22:28)
[2022-11-03] MEDS: Atorvastatin Calcium 40 MG TAB PO SCH (21:36)
[2022-11-03] MEDS: Transdermal Patch Removal TOP SCH (23:29)
[2022-11-04 08:18] LABS: Anion Gap 14 mmol/L (10-20); BUN (Urea Nitrogen) 11 mg/dL (9.8-20.1); Calc. Creatinine Clearance 68 mL/min (70-130); Calcium 9.1 mg/dL (7.8-10.44); Carbon Dioxide 23 mmol/L (23-31); Chloride 97 mmol/L (98-107); Estimated GFR 78; Glucose 167 mg/dL (83-110); Potassium 4.4 mmol/L (3.5-5.1); Sodium 130 mmol/L (136-145)
[2022-11-04] MEDS: Aspirin Chewable 81 MG TAB PO SCH (11:01)
[2022-11-04] MEDS: Apixaban 5 MG TAB PO SCH ×2 (11:01→20:00)
[2022-11-04] MEDS: Amiodarone 200 MG TAB PO SCH ×2 (11:01→20:00)
[2022-11-04] MEDS: Lidocaine 4% Patch TD SCH (11:01)
[2022-11-04 16:48] LABS: Anion Gap 11 mmol/L (10-20); BUN (Urea Nitrogen) 13 mg/dL (9.8-20.1); Calc. Creatinine Clearance 71 mL/min (70-130); Calcium 8.9 mg/dL (7.8-10.44); Carbon Dioxide 26 mmol/L (23-31); Chloride 96 mmol/L (98-107); Estimated GFR 81; Glucose 166 mg/dL (83-110); Potassium 4.3 mmol/L (3.5-5.1); Sodium 129 mmol/L (136-145)
[2022-11-04] MEDS: Atorvastatin Calcium 40 MG TAB PO SCH (20:00)
[2022-11-04] MEDS: Transdermal Patch Removal TOP SCH (20:03)
[2022-11-05 05:42] LABS: Anion Gap 14 mmol/L (10-20); BUN (Urea Nitrogen) 14 mg/dL (9.8-20.1); Calc. Creatinine Clearance 65 mL/min (70-130); Calcium 9.1 mg/dL (7.8-10.44); Carbon Dioxide 26 mmol/L (23-31); Chloride 93 mmol/L (98-107); Estimated GFR 75; Glucose 163 mg/dL (83-110); Potassium 4.2 mmol/L (3.5-5.1); Sodium 129 mmol/L (136-145)
[2022-11-05] MEDS: Amiodarone 200 MG TAB PO SCH (09:28)
[2022-11-05] MEDS: Aspirin Chewable 81 MG TAB PO SCH (09:28)
[2022-11-05] MEDS: Lidocaine 4% Patch TD SCH (09:28)
[2022-11-05] MEDS: Apixaban 5 MG TAB PO SCH (09:28)
[2022-11-05] MEDS: Sodium Chloride 1 GM TAB PO SCH ×2 (09:32→12:32)
[2022-11-05 12:15] VITALS: BP 162/77; TEMP 97.6
== END 2022-11-05 13:15 | DRG 643 ==
LOC: SUATTDRO 10:33 → ERS 10:33 → ERHOLD 13:22 → 2NO 15:55
PROVIDERS: ADMIT Internal Medicine; ATTEND Internal Medicine
DX: E22.2 Syndrome of inappropriate secretion of antidiuretic hormone (principal); G93.41 Metabolic encephalopathy; I48.20 Chronic atrial fibrillation, unspecified; G47.33 Obstructive sleep apnea (adult) (pediatric); E78.5 Hyperlipidemia, unspecified; E11.9 Type 2 diabetes mellitus without complications; I48.91 Unspecified atrial fibrillation; I10 Essential (primary) hypertension; E87.8 Other disorders of electrolyte and fluid balance, not elsewhere classified; E86.0 Dehydration; E78.00 Pure hypercholesterolemia, unspecified; Z90.49 Acquired absence of other specified parts of digestive tract; Z98.890 Other specified postprocedural states; Z88.1 Allergy status to other antibiotic agents; Z91.041 Radiographic dye allergy status; Z79.899 Other long term (current) drug therapy; Z88.8 Allergy status to other drugs, medicaments and biological substances
CPT/HCPCS: 36415; 36416; 70450; 80048; 82533; 83930; 83935; 84443; 84550; 85025; 93005; A4217

== ENCOUNTER 2022-11-23 12:45 | Outpatient (CLI) | payer MEDICARE, BC | END 2022-11-23 12:46 | disposition home or self-care (01) | LOC: BICRAD 12:45 | PROVIDERS: ATTEND Neurological Surgery | DX: S12.600A Unspecified displaced fracture of seventh cervical vertebra, initial encounter for closed fracture (principal); M47.812 Spondylosis without myelopathy or radiculopathy, cervical region | CPT/HCPCS: 72040 ==

== ENCOUNTER 2023-01-06 09:37 | Outpatient (CLI) | payer MEDICARE, BC | END 2023-01-06 09:38 | disposition home or self-care (01) | LOC: BICRAD 09:37 | PROVIDERS: ATTEND Neurological Surgery | DX: S12.600A Unspecified displaced fracture of seventh cervical vertebra, initial encounter for closed fracture (principal); M47.812 Spondylosis without myelopathy or radiculopathy, cervical region | CPT/HCPCS: 72040 ==

== ENCOUNTER 2023-03-12 14:07 | Inpatient (IN) | payer MEDICARE, BC ==
[2023-03-12 16:02] LABS: Bacteria/HPF None Seen HPF (None Seen); Bilirubin Negative (Negative); Blood, Urine Negative (Negative); CAUTI Indications for Culture Dysuria,urgency,freq; Clarity Clear (Clear); Glucose, Urine (Dipstick) 30 mg/dL (Negative); Ketone, Urine Negative (Negative); Leukocyte Negative Leu/uL (Negative); Nitrite Negative (Negative); Protein, Urine (Dipstick) Negative (Neg-Trace); RBC/HPF 0-3 HPF (0-3); Renal Epithelial 0-3 HPF (None Seen); Specific Gravity, Urine 1.012 (1.002-1.036); Squamous Epithelial 0-3 HPF (0-3); Urobilinogen Normal mg/dL (Less than 2); WBC/HPF 0-3 HPF (0-3); pH, Urine 5.5 (5.0-9.0)
[2023-03-12 16:03] LABS: Urine Culture Reflex No No
[2023-03-12 16:26] LABS: #Monocytes 0.7 thou/uL (0.11-0.59); #Neutrophils 6.2 thou/uL (1.40-6.50); %Basophils 0.3 % (0.0-1.0); %Eosinophils 0.5 % (0.0-10.0); %Monocytes 8.4 % (0.0-10.0); %Neutrophils 78.3 % (42.0-75.0); Hematocrit 38.2 % (36.0-47.0); Hemoglobin 12.4 g/dL (12.0-16.0); Mean Corpuscular HGB CONC 32.5 g/dL (32.0-36.0); Mean Corpuscular Hemoglobin 34.3 pg (27.0-31.0); Mean Corpuscular Volume 105.8 fl (78.0-98.0); Mean Platelet Volume 8.1 fL (7.4-10.4); Platelet Count 170 10x3/uL (130-400); RBC Distribution Width 14.4 % (11.5-14.5); Red Blood Cell (RBC) Count 3.61 mill/uL (4.20-5.40); White Blood Cell (WBC) Count 7.9 10x3/uL (4.8-10.8)
[2023-03-12 16:37] LABS: ALT (SGPT) 35 U/L (8-55); AST (SGOT) 27 U/L (5-34); Albumin 4.1 g/dL (3.4-4.8); Alkaline Phosphatase 102 U/L (40-110); Anion Gap 15 mmol/L (10-20); BUN (Urea Nitrogen) 15 mg/dL (9.8-20.1); Bilirubin, Total 0.5 mg/dL (0.2-1.2); Calc. Creatinine Clearance 0 mL/min (70-130); Calcium 9.3 mg/dL (7.8-10.44); Carbon Dioxide 24 mmol/L (23-31); Chloride 101 mmol/L (98-107); Estimated GFR 61; Globulin 2.8 g/dL (2.4-3.5); Glucose 164 mg/dL (83-110); Potassium 4.6 mmol/L (3.5-5.1); Protein, Total 6.9 g/dL (5.8-8.1); Sodium 135 mmol/L (136-145)
[2023-03-12 16:41] LABS: Troponin I Less than 0.010 ng/mL (< 0.028)
[2023-03-12] MEDS ORDERED: Cefepime 2 GM VIAL ONE (16:57)
[2023-03-12 19:00] LABS: SARS-CoV-2 NAA Rapid Test Not Detected (NotDetected)
[2023-03-12] MEDS ORDERED: Ondansetron PF 4 MG/2 ML Vial IVP PRN ×2 (19:45→22:05)
[2023-03-12] MEDS ORDERED: Acetaminophen 325 MG TAB PO PRN (19:45)
[2023-03-12] MEDS ORDERED: Ondansetron ODT 4 MG TAB SL PRN (19:45)
[2023-03-12 20:24] LABS: Lactic Acid 2.1 mmol/L (0.5-2.2)
[2023-03-12 21:21] VITALS: BMI 29.1
[2023-03-12] MEDS ORDERED: Ondansetron ODT 4 MG TAB PO PRN (22:05)
[2023-03-12] MEDS ORDERED: Melatonin 3 MG TAB PO PRN (22:07)
[2023-03-12] MEDS ORDERED: prednisoLONE Acet 0.12% Ophth Soln 5 ml Bottle L EYE SCH (22:15)
[2023-03-12] MEDS ORDERED: Sodium Chloride 0.9% 1,000 ML IV SCH (22:15)
[2023-03-12] MEDS ORDERED: Amiodarone 200 MG TAB PO SCH (22:15)
[2023-03-12] MEDS ORDERED: Dextrose 5% in Water 1,000 ML IV PRN (22:56)
[2023-03-12] MEDS ORDERED: Glucagon 1 MG/ML KIT IM PRN (22:56)
[2023-03-12] MEDS ORDERED: HumaLOG 300 UNITS/3 ML VIAL SC PRN ×2 (22:56)
[2023-03-12] MEDS ORDERED: Dextrose 50% Abboject 50 ML SYRINGE SLOW IVP PRN (22:56)
[2023-03-13 05:43] LABS: #Eosinphils 0.1 thou/uL (0.0-0.7); #Monocytes 0.6 thou/uL (0.11-0.59); #Neutrophils 4.6 thou/uL (1.40-6.50); %Basophils 0.3 % (0.0-1.0); %Eosinophils 1.1 % (0.0-10.0); %Lymphocytes 16.3 % (21.0-51.0); %Monocytes 9.6 % (0.0-10.0); %Neutrophils 72.4 % (42.0-75.0); Hematocrit 36.3 % (36.0-47.0); Hemoglobin 12.2 g/dL (12.0-16.0); Mean Corpuscular HGB CONC 33.6 g/dL (32.0-36.0); Mean Platelet Volume 8.1 fL (7.4-10.4); Platelet Count 197 10x3/uL (130-400); RBC Distribution Width 14.3 % (11.5-14.5); Red Blood Cell (RBC) Count 3.49 mill/uL (4.20-5.40); White Blood Cell (WBC) Count 6.4 10x3/uL (4.8-10.8)
[2023-03-13 06:09] LABS: Anion Gap 15 mmol/L (10-20); BUN (Urea Nitrogen) 11 mg/dL (9.8-20.1); Calc. Creatinine Clearance 64 mL/min (70-130); Calcium 9.2 mg/dL (7.8-10.44); Carbon Dioxide 26 mmol/L (23-31); Chloride 100 mmol/L (98-107); Estimated GFR 75; Glucose 142 mg/dL (83-110); Potassium 4.5 mmol/L (3.5-5.1); Sodium 136 mmol/L (136-145)
[2023-03-13] MEDS ORDERED: Nateglinide 120 MG TAB PO SCH (07:30)
[2023-03-13] MEDS ORDERED: Non-Formulary Item 1 EACH (Losartan Potassium [Cozaar] 50 MG Tab) PO SCH (09:00)
[2023-03-13] MEDS ORDERED: Losartan 25 MG TAB PO SCH (09:00)
[2023-03-13] MEDS ORDERED: Amiodarone 200 MG TAB PO SCH (09:00)
[2023-03-13] MEDS ORDERED: Gabapentin 300 MG CAP PO SCH (09:00)
[2023-03-13] MEDS ORDERED: DULoxetine 20 MG CAP PO SCH (09:00)
[2023-03-13] MEDS ORDERED: prednisoLONE Acet 0.12% Ophth Soln 5 ml Bottle L EYE SCH (09:00)
[2023-03-13 11:48] VITALS: TEMP 97.7
[2023-03-13 15:18] VITALS: BP 165/74
[2023-03-13] MEDS ORDERED: Alogliptin 6.25 MG TAB PO SCH (21:00)
[2023-03-13] MEDS ORDERED: metFORMIN XR 500 MG TAB PO SCH (21:00)
== END 2023-03-13 13:08 | disposition home or self-care (01) | DRG 315 ==
LOC: ERS 14:07 → 2NO 17:29
PROVIDERS: ADMIT Internal Medicine; ATTEND Internal Medicine
DX: I95.9 Hypotension, unspecified (principal); B02.30 Zoster ocular disease, unspecified; S12.600A Unspecified displaced fracture of seventh cervical vertebra, initial encounter for closed fracture; I10 Essential (primary) hypertension; E78.5 Hyperlipidemia, unspecified; G47.33 Obstructive sleep apnea (adult) (pediatric); E11.9 Type 2 diabetes mellitus without complications; I48.0 Paroxysmal atrial fibrillation; W19.XXXA Unspecified fall, initial encounter; Z20.822 Contact with and (suspected) exposure to COVID-19; Z88.1 Allergy status to other antibiotic agents; Z79.899 Other long term (current) drug therapy; Z90.49 Acquired absence of other specified parts of digestive tract; Z90.89 Acquired absence of other organs; Z98.49 Cataract extraction status, unspecified eye; Z98.890 Other specified postprocedural states; Z91.041 Radiographic dye allergy status
CPT/HCPCS: 36415; 36416; 70450; 71045; 72125; 80048; 80053; 81001; 83605; 83880; 84484; 85025; 86850; 86900; 86901; 87040; 93005; 96361; 96365; J0692; J7050

== ENCOUNTER 2023-06-03 10:51 | Outpatient (CLI) | payer MEDICARE, BC | END 2023-06-03 10:52 | disposition home or self-care (01) | LOC: BICMAMMO 10:51 | PROVIDERS: ATTEND Family Medicine | DX: Z12.31 Encounter for screening mammogram for malignant neoplasm of breast (principal) | CPT/HCPCS: 77063; 77067 ==